=== PATIENT | female | born 1965 | race African-American/Black ===

== ENCOUNTER 2018-08-11 11:38 | Inpatient (IN) ==
[2018-08-11] MEDS ORDERED: DUONEB (A & A) INH ONE (11:51)
[2018-08-11] MEDS ORDERED: NS 1,000 ML IV ONE (11:51)
[2018-08-11] MEDS ORDERED: TYLENOL PO ONE (11:51)
--- NOTE | 2018-08-11 12:37 | Diag Imaging Result Doc PS360 ---
EXAM: CHEST-PORTABLE 08/11/2018 HISTORY: cough TECHNIQUE: Erect AP portable at 1224 COMMENT: Compared to the previous study of 09/09/2016 there has been no significant change in the appearance of the chest. IMPRESSION: Stable chest. Electronically signed by Elias Petersen 08/11/2018 12:35 PM
[2018-08-11 12:45] LABS: INFLUENZA A NEGATIVE (NEGATIVE); INFLUENZA B NEGATIVE (NEGATIVE)
[2018-08-11 13:11] LABS: BILIRUBIN URINE NEGATIVE (NEGATIVE); BLOOD URINE TRACE (NEGATIVE); CLARITY CLEAR (CLEAR); COLOR YELLOW; GLUCOSE URINE NEGATIVE (NEGATIVE); KETONE URINE 1+(Small) mg/dL (NEGATIVE); LEUKOCYTES URINE 2+ (NEGATIVE); NITRITE URINE NEGATIVE (NEGATIVE); PH URINE 6.5; PROTEIN URINE TRACE mg/dL (NEGATIVE); SP GRAVITY URINE 1.015; UROBILINOGEN URINE NORMAL
[2018-08-11 13:12] LABS: URINE EPITHELIAL CELLS >10 /HPF (<10); URINE RBC <10 /HPF (<10); URINE SOURCE CLEAN CATCH
[2018-08-11] MEDS ORDERED: ROCEPHIN 1 GM in NS 50 ML IV ONE (13:28)
[2018-08-11 13:36] LABS: BASO# 0.03 X1000 (0.0-0.2); BASO% 0.2 % (0.0-0.8); HEMATOCRIT 39.4 % (37.0-47.0); IMM GRAN# 0.13 X1000 (0.0-0.04); IMM GRAN% 0.9 % (0.0-0.5); LYMPH# 0.77 X1000 (1.2-3.4); LYMPH% 5.1 % (20.5-51.1); MCH 27.8 PG (27-31); MCV 84.4 FL (81-99); MONO# 0.44 X1000 (0.11-0.59); MONO% 2.9 % (1.7-9.3); MPV 10.9 FL (7.4-10.4); NEUT# 13.86 X1000 (1.4-6.5); NEUT% 90.9 % (42.2-75.2); PLT 232 X1000 (130-400); RBC 4.67 XMIL (4.2-5.4); RDW 15.3 % (11.5-14.5); WBC 15.23 X1000 (4.8-10.8)
[2018-08-11 13:37] LABS: AGAP 13; ALKALINE PHOSPHATASE 52 U/L (32-104); BUN 13 mg/dL (8-22); CALCIUM 9.7 mg/dL (8.8-10.2); CHLORIDE 103 mmol/L (98-107); COSMO 283; CREATININE 0.6 mg/dL (0.5-0.9); ESTIMATED GFR > 60; GLUCOSE 131 mg/dL (70-104); GOT 16 U/L (10-30); GPT 10 U/L (10-36); POTASSIUM 3.3 mmol/L (3.5-5.1); SODIUM 141 mmol/L (136-145); TCO2 25 mmol/L (25-35); TOTAL PROTEIN 7.7 g/dL (6.3-8.3)
--- NOTE | 2018-08-11 15:10 | Diag Imaging Result Doc PS360 ---
EXAM: CT ANGIOGRM PULMONARY ARTERIES HISTORY: SOB TECHNIQUE: Routine with IV contrast. 3-D postprocessing COMPARISON: None. FINDINGS: There is appropriate arterial opacification. No filling defects to suggest acute pulmonary embolism. There is cardiomegaly. No aortic aneurysm or dissection. Prominent main pulmonary artery is suggestive of pulmonary arterial hypertension. Within the upper lobes right greater than left posteriorly there are prominent reticular markings and trace dependent atelectasis. 7 mm groundglass nodule image 30 sequence five is incidentally noted. There are calcified hilar lymph nodes. There is hepatic steatosis. IMPRESSION: 1.No evidence for acute pulmonary embolism. 2.Cardiomegaly. 3.Mild dependent fibrosis/atelectasis. 4.Possible pulmonary arterial hypertension. 5.Incidental groundglass 7 mm nodule right upper lobe. As per Fleischner Society guidelines, recommend follow-up CT in 6-12 months then every two years for five years if persistent. This exam was performed using automated exposure control, adjustment of mA or kV according to patient size, and/or use of iterative reconstruction technique. Electronically signed by Araceli Whitney 08/11/2018 3:07 PM
--- NOTE | 2018-08-11 15:38 | PROVIDER DOCUMENTATION ---
This chart was entered by Jacqueline Chavez Scribe, acting as scribe for Sudhir Multani MD. HPI-General Adult - General Chief Complaint: Cold Symptoms Stated Complaint: NAUSEA & VOMITING Time Seen by Provider: 08/11/18 11:55 Source: patient Allergies/Adverse Reactions: Patient Allergies Allergy/AdvReac Type Severity Reaction Status Date / Time No Known Allergies Allergy Verified 01/05/18 22:45 Home Medications: Home Medication List Medication Instructions Recorded Confirmed Last Taken Type Metformin [Glucophage] 1,000 mg PO BID 05/22/15 07/14/18 01/05/18 17:00 History Simvastatin 40 mg PO QHS 11/27/15 07/14/18 01/04/18 History Clonazepam 1 mg PO QHS 01/05/18 07/14/18 01/04/18 History Ergocalciferol (Vitamin D2) 50,000 unit PO DIRECTED 01/05/18 07/14/18 History [Vitamin D2] Gabapentin [Neurontin] 800 mg PO BID 01/05/18 07/14/18 01/05/18 17:00 History Hydrocodone/Acetaminophen 1 each PO 4XDAY 01/05/18 07/14/18 01/05/18 17:00 History [Hydrocodon-Acetaminophn 10-325] Meloxicam 7.5 mg PO QHS 01/05/18 07/14/18 01/04/18 History Metoprolol Succinate E.r. [Toprol 25 mg PO BID 01/05/18 07/14/18 01/05/18 History Xl] Omeprazole 40 mg PO DAILY 01/05/18 07/14/18 01/05/18 History Sitagliptin [Januvia] 50 mg PO DAILY 01/05/18 07/14/18 01/05/18 History Tizanidine HCl 4 mg PO TID 01/05/18 07/14/18 01/05/18 History Sulfamethoxazole/Trimethoprim 1 ea PO BID #14 tab 01/06/18 07/14/18 Unknown Rx [Bactrim Ds Tablet] Albuterol Sulfate [Proventil Hfa] 2 puff IH Q4HR PRN #1 hfa.aer.ad 05/17/18 Unknown Rx Promethazine/Dextromethorphan 5 ml PO BID PRN #90 ml 05/17/18 07/14/18 Unknown Rx [Promethazine-Dm Syrup] Naproxen [EC-Naprosyn] 500 mg PO BID PRN #30 tablet. 07/14/18 Unknown Rx - History of Present Illness -Gen Adult Nature of Presenting Problems: Patient is a 53 year old female who presents to the ED with multiple complaints. Patient states symptoms of weakness, cough, nasal congestion and fever. Patient denies nausea and vomiting. Location of Pain/Injury: reports: none Pain Radiation: reports: no radiation Quality of Pain: reports: none Severity: reports: mild Onset/Duration: reports: unsure Timing: reports: still present Context/Activities at Onset: reports: light activity Modifying Factors: improves with: nothing Associated Symptoms: reports: cough, fever/chills (fever), sinus congestion/ drainage (congestion), weakness Similar Symptoms Previously?: Yes Recently seen or treated by another doctor?: No Review of Systems - Adult - REVIEW OF SYSTEMS - ADULT Constitutional: reports: fever. denies: chills, fatique Eyes: reports: no symptoms reported Ears, Nose, Mouth & Throat: reports: sinus problem (congestion). denies: ear pain, nose pain, throat pain Cardiovascular: reports: no symptoms reported Respiratory: reports: cough. denies: shortness of breath, wheezing Gastrointestinal: reports: no symptoms reported Genitourinary: reports: no symptoms reported Musculoskeletal: reports: muscle weakness. denies: back pain, neck pain Integumentary: reports: no symptoms reported Neurological: reports: no symptoms reported Psychiatric: reports: no symptoms reported Endocrine: reports: no symptoms reported Hematologic/Lymphatic: reports: no symptoms reported Allergic/Immunologic: reports: no symptoms reported All Other Systems: Reviewed and Negative Past History - Adult - PAST MEDICAL HISTORY-ADULT Review of Records: reports: Nursing Assessment Review, Medications Reviewed, Social history reviewed & non-contributory. Major Childhood Illnesses: reports: denies history Cardiovascular: reports: blood clots, HTN, hyperlipidemia. denies: ME, pacemaker Respiratory: reports: asthma, bronchitis, other (bacterial meningitis) Gastrointestinal: reports: GERD. denies: cholelithiasis, colitis, diverticulosis, GI bleed, ulcer Obstetrical/Gynecological: reports: denies history Genitourinary: reports: polycystic kidney disease. denies: incontinence, kidney disease, kidney stones Musculoskeletal: reports: denies history Neurological: reports: headaches/migraines (tension and sinus) Endocrine/Immune: reports: Diabetes Other Conditions: reports: other (shingles) - PRIOR SURGERIES/PROCEDURES Surgical/Procedure History: reports: , orthopedic (extremity) (right hand, left arm, right ankle, left shoulder), other (bilateral tubal ) - IMMUNIZATION STATUS Childhood Immunizations: UTD, See Nurse Assessment Flu Vaccine: See Nurse Assessment - FAMILY HISTORY Family History: reviewed, not pertinent - SOCIAL HISTORY Smoking: cigarettes (former) Substance Use: denies Physical Exam-General - PHYSICAL EXAM-ADULT Initial Vital Signs Reviewed: Yes - CONSTITUTIONAL General Appearance: alert, no apparent distress - HEAD, EARS, NOSE, MOUTH & THROAT HENMT: normal ENT inspection - NECK Neck: normal inspection - RESPIRATORY Respiratory: chest non-tender, lungs clear, normal breath sounds - CARDIOVASCULAR Cardiovascular: normal peripheral pulses, tachycardia - GASTROINTESTINAL (ABDOMEN) Abdominal Exam: normal bowel sounds, non tender, soft - MUSCULOSKELETAL Extremity: non-tender, normal inspection - SKIN Integumentary: normal color, normal turgor, warm/dry - NEUROLOGIC Neurologic: grossly normal, no motor/sensory deficits - PSYCHIATRIC Psych/Mental Status: normal mood/affect, oriented x 3 Progress - PLAN OF CARE/RESULTS Progress/Plan/Lab Results: Vital Signs - 8 hr 08/11/18 11:45 Temperature 100.0 F H Pulse Rate 136 H Respiratory Rate 18 Blood Pressure 109/071 O2 Sat by Pulse Oximetry 95 Orders Category Date Time Status Saline Loc NOW Care 08/11/18 11:51 Active CHEST-PORTABLE [RAD] Stat Exams 08/11/18 11:51 Ordered BLOOD CULTURE [BLDCUL] Stat Lab 08/11/18 11:51 Ordered CBC WITH DIFF [HEME] Stat Lab 08/11/18 11:51 Ordered COMPREHENSIVE METABOLIC PANEL [CHEM] Stat Lab 08/11/18 11:51 Ordered D-DIMER [COAG] Stat Lab 08/11/18 11:52 Ordered Flu Swab [INFLUENZA SCREEN A/B] Stat Lab 08/11/18 11:50 Uncollected LACTATE, PLASMA [CHEM] Stat Lab 08/11/18 11:51 Uncollected PRO B-NATRIURETIC PEPTIDE Stat Lab 08/11/18 11:51 Ordered TROPONIN T Stat Lab 08/11/18 11:52 Ordered 0.9% Sodium Chloride Inj [Ns] 1,000 ml Med 08/11/18 11:51 Active IV 999 mls/hr Acetaminophen [Tylenol] Med 08/11/18 11:51 Discontinued 1,000 mg PO NOW ONE Albuterol 2.5MG/Ipratrop 0.5MG [Duoneb (A & A)] Med 08/11/18 11:51 Discontinued 3 ml INH NOW ONE Aerosol Treatments Routine Oth 08/11/18 11:52 Active Aerosol Treatments Stat Oth 08/11/18 11:52 Active Result Diagrams: 08/11/18 12:20 08/11/18 13:00 - EKG 1 Time of EKG reading by physician:: 13:07 EKG Read and Signed by:: Sudhir Multani EKG Interpretation (*Must complete 3 of following elements*): Abnormal Rate: 117 Rhythm: sinus tachycardia Comments: otherwise normal ECG - XRAY 1 XRAY Study: Chest Impression: See EMR Report ( EXAM: CHEST-PORTABLE 08/11/2018 HISTORY: cough TECHNIQUE: Erect AP portable at 1224 COMMENT: Compared to the previous study of 09/09/2016 there has been no significant change in the appearance of the chest. IMPRESSION: Stable chest. Electronically signed by Elias Petersen 12:35 PM 08/11/18 1235 Interpreting Physician: Elias Petersen MD Dictated Date/Time: 08/11/18 1234 cc: Sudhir Multani MD;) - CT/MRI 1 CT Study: Angiogram Impression: See EMR Report (EXAM: CT ANGIOGRM PULMONARY ARTERIES HISTORY: SOB TECHNIQUE: Routine with IV contrast. 3-D postprocessing COMPARISON: None. FINDINGS: There is appropriate arterial opacification. No filling defects to suggest acute pulmonary embolism. There is cardiomegaly. No aortic aneurysm or dissection. Prominent main pulmonary artery is suggestive of pulmonary arterial hypertension. Within the upper lobes right greater than left posteriorly there are prominent reticular markings and trace dependent atelectasis. 7 mm groundglass nodule image 30 sequence five is incidentally noted. There are calcified hilar lymph nodes. There is hepatic steatosis. IMPRESSION: 1.No evidence for acute pulmonary embolism. 2.Cardiomegaly. 3.Mild dependent fibrosis /atelectasis. 4.Possible pulmonary arterial hypertension. 5.Incidental groundglass 7 mm nodule right upper lobe. As per Fleischner Society guidelines, recommend follow-up CT in 6-12 months then every two years for five years if persistent. This exam was performed using automated exposure control, adjustment of mA or kV according to patient size, and/or use of iterative reconstruction technique. Electronically signed by Araceli Whitney 08/11/2018 3: 07 PM 08/11/18 9505 Interpreting Physician: Araceli Whitney MD Dictated Date/Time: 08/11/18 6275 cc: Sudhir Multani MD; None,PCP) - CONSULTS/PCP/HOSPITALIST Notification #1 *Consult/PCP/Hospitalist*: Dr. Reaves Time Discussed: 15:23 Reason/Comments: Dr. Multani consulted with Dr. Reaves about patient Consult Disposition: Admit Departure - Departure Date of Disposition Decision: 08/11/18 Time of Disposition Decision: 15:23 DIAGNOSIS: UTI (urinary tract infection), Leukocytosis Disposition: ADMITTED INPATIENT 09 Certified Medical Emergency: Emergent Condition: Stable Referrals and Follow-Ups: None,PCP [Primary Care Provider] - - Critical Care Note This patient required my direct & personal management of CC.: No Attestation - Physician/ LIZA Attestation Patient care was provided by Advanced Practice Provider:: No The physician spent face to face time with patient:: Yes Advanced Practice Provider documentation review:: Supervising physician onsite and consulted in the evaluation and care of this patient. The physician did have a face to face encounter with the patient. This chart was documented by the indicated scribe, (Jacqueline Chavez Scribe) and accurately reflects the services I performed and decisions made by , Sudhir Multani MD, as attested by the provider's signature.
[2018-08-11] MEDS ORDERED: FLU VACCINE IM ONE (17:38)
[2018-08-11] MEDS: NS 1,000 ML IV SCH (18:25)
[2018-08-11] MEDS: SODIUM CHLORIDE 0.9% INJ SCH (18:25)
[2018-08-11] MEDS: PROTONIX IV SCH (18:25)
[2018-08-11] MEDS ORDERED: LOVENOX SUBQ ONE (18:30)
--- NOTE | 2018-08-11 19:52 | EKG Report ---
Test Performed on : 08/11/2018 7:50:45 PM Test Reason : Tachycardia on tele Blood Pressure : / mmHG Vent. Rate : 128 BPM Atrial Rate : 128 BPM P-R Int : 146 ms QRS Dur : 068 ms QT Int : 304 ms P-R-T Axes : 057 018 041 degrees QTc Int : 443 ms Sinus tachycardia. with premature atrial complexes. Nonspecific ST abnormality Abnormal ECG When compared with ECG of 11-AUG-2018 13:07, (Unconfirmed) premature atrial complexes. are now present Confirmed by Daimen Bowens MD ([id number]) on 08/21/2018 9:52:55 AM
[2018-08-11] MEDS: TYLENOL PO PRN (20:23)
[2018-08-11] MEDS: NORCO-10 PO SCH (20:30)
[2018-08-11] MEDS: TOPROL XL PO SCH (20:30)
[2018-08-11] MEDS: HUMALOG DOSE (PARKWAY) SUBQ SCH (20:37)
--- NOTE | 2018-08-11 23:59 | HISTORY AND PHYSICAL ---
CHIEF COMPLAINT: Weakness, nausea, vomiting. HISTORY OF PRESENT ILLNESS: This is a 53-year-old female with a history of diabetes mellitus, hyperlipidemia and hypertension. She presents to the emergency room complaining of fever, cough and congestion that have progressed over the past 3 days and she states today " it hit me all at once." Therefore, she came in for evaluation. She was tachycardic on arrival for which she was given IV hydration. She denied any syncope or dizziness, any chest pain, palpitations. She does report sinus congestion and drainage that have been present for quite some time. PAST MEDICAL HISTORY: Hypertension, hyperlipidemia, prior blood clots, polycystic kidney disease, diabetes mellitus. PAST SURGICAL HISTORY: Right knee replacement. SOCIAL HISTORY: She denies alcohol, tobacco, or illicit drug use. ALLERGIES: No known drug allergies. HOME MEDICATIONS: A list will be obtained by the nursing staff and reviewed and restarted as is appropriate. PHYSICAL EXAMINATION: GENERAL: This is a 53-year-old female who is lying in the bed in no distress. VITAL SIGNS: Blood pressure is 117/92 with a heart rate of 100, respirations 18 , temperature "90" degrees with room air saturations 96-98%. EYES: Pupils are equal, round, react to light. EOMs are intact. Sclerae are anicteric. HENT: Head is normocephalic, atraumatic. Mucous membranes are moist. NECK: Supple with trachea midline. CARDIOVASCULAR: Regular rate and rhythm. She is tachycardic. S1 and S2 appreciated. She has peripheral pulses palpable x4 extremities. PULMONARY: Breath sounds are clear with no increased work of breathing noted. Chest rises and falls symmetric with respiration. Chest wall is nontender to palpation. GASTROINTESTINAL: Abdomen is soft, nontender, nondistended with bowel sounds in all 4 quadrants. GENITOURINARY: She denies any suprapubic or CVAT. NEUROLOGIC: She is alert and oriented x3. LABS: WBC is 15.2 with hemoglobin 13, hematocrit 39.4 and platelets of 232, 000. D-dimer is 2.16. Sodium 141, potassium 3.3, BUN 13, creatinine 0.6, glucose of 131. Urinalysis reveals 10-20 microscopic white blood cells with greater than 10 epithelial cells, 1+ ketones. Blood culture is pending. ASSESSMENT AND PLAN: 1. Leukocytosis. 2. Urinary tract infection. 3. Elevated D-dimer with a CTA pulmonary negative for pulmonary embolism. obtain a lower extremity Doppler. As she does have a history of a DVT in the past, we will give 1 dose of Lovenox a milligram per kilogram and then we will reevaluate in the morning. l continue Rocephin and any further antibiotics will be culture driven. pattern blood glucose with sliding scale insulin. Further treatments pending hospital course. Dictated by SAVITA Crowe for Braulio Carias MD This chart was documented by, SAVITA Crowe and accurately reflects the services performed, treatment plan and medical decisions as attested by the providers signature Braulio Carias MD. cc: SAVITA Crowe MD [facility]
[2018-08-12] MEDS: TYLENOL PO PRN ×4 (00:51→20:47)
[2018-08-12] MEDS: NORCO-10 PO SCH ×4 (02:09→20:47)
[2018-08-12] MEDS ORDERED: VANCOMYCIN IV PER PHARMACY MISC SCH (02:45)
[2018-08-12] MEDS ORDERED: VANCOMYCIN 1 GM/NS 1 GM/250 ML IVPB IV ONE ×2 (04:00→06:00)
[2018-08-12] MEDS: HUMALOG DOSE (PARKWAY) SUBQ SCH ×4 (06:03→20:47)
[2018-08-12] MEDS: TOPROL XL PO SCH ×2 (08:29→20:47)
--- NOTE | 2018-08-12 11:08 | EKG Report ---
Test Performed on : 08/11/2018 1:07:34 PM Test Reason : ER Blood Pressure : / mmHG Vent. Rate : 117 BPM Atrial Rate : 117 BPM P-R Int : 160 ms QRS Dur : 072 ms QT Int : 320 ms P-R-T Axes : 053 017 029 degrees QTc Int : 446 ms Sinus tachycardia. Otherwise normal ECG When compared with ECG of 03-AUG-2016 13:47, Nonspecific T wave abnormality no longer evident in Anterior leads T wave amplitude has decreased in Lateral leads Unconfirmed Result
[2018-08-12] MEDS: NS 1,000 ML IV SCH (12:10)
--- NOTE | 2018-08-12 13:45 | PROGRESS NOTE ---
DATE: 08/12/2018 SUBJECTIVE: Patient continues to have fever and complains of having body aches. OBJECTIVE: Vital Signs: Temperature 101.7 degrees Fahrenheit, pulse 103 per minute, respiratory rate 20 per minute, blood pressure 121/82, pulse oximetry 93% on room air. General: Patient is alert and oriented x3. She does not appear to be in any acute distress but does appear to be somewhat sick. Cardiovascular: First and second heart sounds are audible without any murmurs or gallops. Respiratory: No respiratory distress noted. Bilateral lung air entry is good without any rales or rhonchi. Gastrointestinal: Abdomen is soft and nondistended. Normal bowel sounds are present. DIAGNOSTIC DATA: CBC shows WBC count of 15.23. There are 90.9% neutrophils. Chemistry showed potassium levels of 3.3. Glucose levels were found to be 131. Rest of the chemistry is nondiagnostic. Cardiac enzymes are found to be negative and D-dimer was elevated at 2.16. Urinalysis showed 10 to 20 white blood cells per high-power field. One set of blood culture grew gram-positive cocci. Pulmonary angiogram did not show any evidence of acute pulmonary embolism. Incidental ground-glass 7 mm nodule in the right upper lobe was noted. IMPRESSION: 1. Fever with leukocytosis secondary to urinary tract infection with gram-positive bacteremia. 2. Hypokalemia. 3. Incidental pulmonary nodule. PLAN: The patient will continue to receive IV ceftriaxone along with vancomycin. We will continue with lispro insulin as per sliding scale for her diabetes and keep her on IV fluids. I am going to have repeat labs including CBC and CMP in the morning tomorrow. Further recommendations will be given as per hospital course. cc: Jacqui Mccarty MD
[2018-08-12] MEDS: ROCEPHIN 1 GM in NS 50 ML IV SCH (14:39)
[2018-08-12] MEDS: VANCOMYCIN 1,750 MG in NS 250 ML IV SCH (16:27)
[2018-08-12] MEDS: PROTONIX IV SCH (18:27)
[2018-08-13] MEDS: NORCO-10 PO SCH ×4 (02:03→21:59)
[2018-08-13] MEDS: VANCOMYCIN 1,750 MG in NS 250 ML IV SCH ×2 (03:07→17:17)
[2018-08-13 06:06] LABS: BASO# 0.03 X1000 (0.0-0.2); BASO% 0.3 % (0.0-0.8); EOS# 0.01 X1000 (0.0-0.7); EOS% 0.1 % (0.0-10.0); HEMATOCRIT 36.2 % (37.0-47.0); HEMOGLOBIN 11.5 g/dL (12.0-16.0); IMM GRAN# 0.02 X1000 (0.0-0.04); IMM GRAN% 0.2 % (0.0-0.5); LYMPH# 3.25 X1000 (1.2-3.4); LYMPH% 28.1 % (20.5-51.1); MCHC 31.8 g/dL (33-37); MONO% 6.9 % (1.7-9.3); MPV 10.6 FL (7.4-10.4); NEUT# 7.44 X1000 (1.4-6.5); NEUT% 64.4 % (42.2-75.2); PLT 176 X1000 (130-400); RBC 4.26 XMIL (4.2-5.4); RDW 15.7 % (11.5-14.5); WBC 11.55 X1000 (4.8-10.8)
[2018-08-13] MEDS: HUMALOG DOSE (PARKWAY) SUBQ SCH ×4 (06:26→21:54)
[2018-08-13 06:33] LABS: AGAP 12; ALBUMIN 3.3 g/dL (3.5-5.0); ALKALINE PHOSPHATASE 47 U/L (32-104); BUN 8 mg/dL (8-22); CHLORIDE 103 mmol/L (98-107); COSMO 275; CREATININE 0.6 mg/dL (0.5-0.9); ESTIMATED GFR > 60; GLUCOSE 117 mg/dL (70-104); GOT 17 U/L (10-30); GPT 9 U/L (10-36); MAGNESIUM 1.5 mg/dL (1.5-2.7); POTASSIUM 3.3 mmol/L (3.5-5.1); SODIUM 138 mmol/L (136-145); TCO2 23 mmol/L (25-35)
[2018-08-13] MEDS: TOPROL XL PO SCH ×2 (08:48→22:00)
[2018-08-13] MEDS ORDERED: KLOR-CON PO ONE (12:02)
[2018-08-13] MEDS ORDERED: MORPHINE IV ONE (12:28)
[2018-08-13] MEDS ORDERED: BENADRYL IV ONE (12:28)
--- NOTE | 2018-08-13 12:49 | PROGRESS NOTE ---
DATE: 08/13/2018 SUBJECTIVE: The patient feels much better today as compared to yesterday. She continues to have pain and swelling in her right knee, however. OBJECTIVE: Vital Signs: Temperature 98.9 degrees, with a maximum temperature of 102 degrees Fahrenheit last night at 8 p.m. Pulse rate is 97 per minute. Respiratory rate 18 per minute. Blood pressure 111/73. Pulse oximetry 98% on room air. General: The patient is alert and oriented x3. She does not appear to be in any acute distress. Cardiovascular System: First and second heart sounds are audible without any murmurs or gallops. Respiratory System: No respiratory distress noted. Bilateral lung air entry is good without any rales or rhonchi. Gastrointestinal: Abdomen is soft and nondistended. It is nontender on palpation. Normal bowel sounds are present. Musculoskeletal: Right knee is edematous and tender, with decreased range of motion secondary to pain and stiffness. It is warm to touch. IMPRESSION: 1. Urinary tract infection, with bacteremia secondary to Streptococcus pneumonia. 2. Septic arthritis, right knee, status post total knee arthroplasty approximately 7 months ago in December 2017. 3. Hypokalemia. Potassium level of 3.3. 4. Type 2 diabetes mellitus. 5. Incidental pulmonary nodule. PLAN: The patient will be kept on ceftriaxone and vancomycin intravenously, and we are going to give her potassium supplementation. Orthopedic consultation has been requested to evaluate her right knee swelling and pain with possible septic arthritis. The patient has a history of diabetes and therefore, we are going to continue with lispro insulin as per sliding scale to control her glucose levels. She will be kept on IV fluid normal saline 75 mL an hour. As far as her pulmonary nodule is concerned, this is an incidental finding and this was discussed with the patient in detail. She understands that this has to be followed up as outpatient once she is discharged. Further recommendations will be given as per hospital course. cc: Jacqui Mccarty MD
--- NOTE | 2018-08-13 14:19 | Diag Imaging Result Doc PS360 ---
EXAM: KNEE 1-2 VIEWS-RIGHT HISTORY: possible sesis TECHNIQUE: Right knee two views COMPARISON: None. FINDINGS: There is soft tissue swelling about the knee. There has been prior orthopedic replacement of the knee. Good alignment to the femoral and tibial components. No evidence of loosening. No fracture. No dislocation. IMPRESSION: Soft tissue swelling, but otherwise negative exam. Electronically signed by Micky Ordonez 08/13/2018 2:17 PM
[2018-08-13] MEDS: ZYRTEC PO SCH (14:43)
[2018-08-13] MEDS: ZANTAC PO SCH ×2 (14:43→22:00)
[2018-08-13] MEDS: ROCEPHIN 1 GM in NS 50 ML IV SCH (16:11)
[2018-08-13] MEDS: PROTONIX IV SCH (17:17)
[2018-08-13] MEDS: SODIUM CHLORIDE 0.9% INJ SCH (17:17)
[2018-08-14] MEDS: NORCO-10 PO SCH ×4 (02:05→21:12)
[2018-08-14 05:32] LABS: BASO# 0.02 X1000 (0.0-0.2); BASO% 0.2 % (0.0-0.8); EOS# 0.04 X1000 (0.0-0.7); EOS% 0.4 % (0.0-10.0); HEMATOCRIT 33.9 % (37.0-47.0); HEMOGLOBIN 10.7 g/dL (12.0-16.0); IMM GRAN# 0.02 X1000 (0.0-0.04); IMM GRAN% 0.2 % (0.0-0.5); LYMPH# 3.04 X1000 (1.2-3.4); LYMPH% 27.9 % (20.5-51.1); MCH 26.8 PG (27-31); MCHC 31.6 g/dL (33-37); MCV 84.8 FL (81-99); MONO# 1.03 X1000 (0.11-0.59); MONO% 9.4 % (1.7-9.3); MPV 10.4 FL (7.4-10.4); NEUT# 6.75 X1000 (1.4-6.5); NEUT% 61.9 % (42.2-75.2); PLT 177 X1000 (130-400); RDW 15.7 % (11.5-14.5)
[2018-08-14] MEDS: VANCOMYCIN 1,750 MG in NS 250 ML IV SCH ×2 (06:30→17:22)
[2018-08-14 06:31] LABS: AGAP 13; CHLORIDE 105 mmol/L (98-107); COSMO 278; GLUCOSE 141 mg/dL (70-104); POTASSIUM 3.8 mmol/L (3.5-5.1); SODIUM 139 mmol/L (136-145); TCO2 20 mmol/L (25-35)
[2018-08-14] MEDS: HUMALOG DOSE (PARKWAY) SUBQ SCH ×4 (06:31→21:09)
[2018-08-14 06:37] LABS: BUN 9 mg/dL (8-22); CREATININE 0.7 mg/dL (0.5-0.9); ESTIMATED GFR > 60
[2018-08-14] MEDS: ZANTAC PO SCH ×2 (09:33→21:13)
[2018-08-14] MEDS: ZYRTEC PO SCH (09:34)
[2018-08-14] MEDS: TOPROL XL PO SCH (09:34)
--- NOTE | 2018-08-14 11:54 | PROGRESS NOTE ---
DATE: 08/14/2018 SUBJECTIVE: Nayana Barksdale has cellulitis of her right leg with possible septic total knee. Her aspiration from yesterday came back with a cell count that is not consistent with infection. Her fluid did not appear to be infected either. We are still awaiting cultures, but likely needs no further orthopedic treatment at this time. She can follow up with her orthopedic surgeon or who is following her for her total knee as an outpatient. She should continue on the antibiotics for her cellulitis. I will monitor her cultures and, if it does grow out a bacteria in her knee, then we will consider irrigation and debridement of her knee. cc: Sai Vogt MD
[2018-08-14 12:19] LABS: BODY FLUID SOURCE SYNOVIAL FLUID
--- NOTE | 2018-08-14 12:20 | CONSULTATION ---
DATE OF CONSULTATION: 08/13/2018 CHIEF COMPLAINT: Right knee pain and swelling. HISTORY OF PRESENT ILLNESS: This is a 53-year-old female who was admitted for a urinary tract infection and possible pneumonia. She has streptococcus pneumoniae in her blood cultures. She continued to have redness of her leg with effusion in her right knee. She had a total knee arthroplasty by Dr. Guanako Hogan back in the summer and then had it scoped for scar tissue back in approximately February or March, she thinks. She now states when she came into the hospital , her knee was not bothering her but now it is swollen and painful. PAST MEDICAL HISTORY: See admission history and physical PAST SURGICAL HISTORY: See admission history and physical SOCIAL HISTORY: See admission history and physical MEDICINES: See admission history and physical ALLERGIES: See admission history and physical REVIEW OF SYSTEMS: Positive for right knee pain. All other systems were negative. PHYSICAL EXAMINATION: General: Reveals a well-developed, well-nourished female. She is alert and cooperative with the exam. Extremities: Her knee does reveal some erythema of her leg up to her knee. She does have an effusion in her knee as well and pain with range of motion of her knee. DIAGNOSTIC DATA: X-rays of her knee show the prosthesis appears to be in good position. There is no sign of any loosening or wear. I am uncertain what type of knee this is but it looks like it is probably a Biomet knee or possibly a Yvonne, neither of which I typically treat. ASSESSMENT AND PLAN: I have aspirated her knee, returned about 60 mL of fluid. It appeared fairly normal-appearing joint fluid. I did not inject her knee since she has a total knee in place. We will consider further treatment options depending upon the results of her culture, Gram stain, and cell count. cc: Sai Vogt MD [facility]
[2018-08-14 12:21] LABS: MONOS 24 %; POLYS 76 %; WBC BF 2805 /cumm
[2018-08-14] MEDS: ROCEPHIN 1 GM in NS 50 ML IV SCH (15:59)
[2018-08-14] MEDS: NS 1,000 ML IV SCH (16:07)
[2018-08-14 16:32] LABS: URINE SOURCE CLEAN CATCH
[2018-08-14 16:36] LABS: BILIRUBIN URINE NEGATIVE (NEGATIVE); BLOOD URINE 1+ (NEGATIVE); CLARITY CLEAR (CLEAR); COLOR YELLOW; GLUCOSE URINE NEGATIVE (NEGATIVE); KETONE URINE NEGATIVE (NEGATIVE); LEUKOCYTES URINE TRACE (NEGATIVE); NITRITE URINE NEGATIVE (NEGATIVE); PROTEIN URINE TRACE mg/dL (NEGATIVE); SP GRAVITY URINE 1.005; UROBILINOGEN URINE NORMAL
[2018-08-14 16:37] LABS: URINE EPITHELIAL CELLS <10 /HPF (<10); URINE RBC <10 /HPF (<10); URINE WBC <10 /HPF (<10)
[2018-08-14 16:38] LABS: URINE BACTERIA 1+ /HFP; URINE CAST NONE SEEN /LPF; URINE CRYSTAL NONE SEEN /HPF; URINE YEAST NONE SEEN /HPF
--- NOTE | 2018-08-14 17:33 | PROGRESS NOTE ---
DATE: 08/14/2018 SUBJECTIVE: Patient denies any complaints today except for right knee pain and swelling. OBJECTIVE: Vital Signs: Temperature 98.7 degrees, pulse rate 89 beats per minute, respiratory rate 20 per minute and blood blood pressure 99/64 mmHg. Pulse oximetry 97% on room air. General: Patient is alert and oriented x 3. She does not appear to be in acute distress. Cardiovascular: S1, S2 are present without any murmurs. Respiratory System: Bilateral lung air entry good without any rales of rhonchi present on auscultation. Gastrointestinal System: Abdomen is soft and nondistended. It is nontender and normal bowel sounds are present. Musculoskeletal: Right knee edematous and tender along with increased warmth. DIAGNOSTIC DATA: CBC done today shows WBC of 10.90, hemoglobin 10.7, hematocrit 33.9 and platelets 177. BMP done today is nondiagnostic. IMPRESSION: 1. Urinary tract infection with bacteremia secondary to streptococcus pneumoniae. 2. Septic arthritis right knee that is status post total knee arthroplasty approximately 7 months ago in December 2017. 3. Type 2 diabetes mellitus. 4. Incidental pulmonary nodule. PLAN: Patient will continue to receive IV ceftriaxone for her current conditions and urinary tract infection, bacteremia and septic arthritis. Orthopedic consultation with Dr. Vogt was obtained and he did aspirate right knee. Fluid did not have elevated white cells and did not appear to be septic. Culture was sent and Dr. Vogt did not think that any arthritic intervention is recommended at this time. He has recommended patient to follow up with her original orthopedic surgeon who did surgery. The patient will be continued her other routine medications including lispro insulin as per sliding scale for to control her glucose levels. She understands that she needs to follow up with inbound call center representative to address her pulmonary nodule once she is discharged from the hospital. Further recommendations will be as per hospital course. cc: MD HORACE Olson
[2018-08-14] MEDS: PROTONIX IV SCH (17:40)
[2018-08-14] MEDS: BENADRYL IV PRN (18:25)
[2018-08-15] MEDS: NORCO-10 PO SCH ×4 (02:09→20:32)
[2018-08-15] MEDS: BENADRYL IV PRN (04:01)
[2018-08-15] MEDS: VANCOMYCIN 1,750 MG in NS 250 ML IV SCH (05:15)
[2018-08-15] MEDS: HUMALOG DOSE (PARKWAY) SUBQ SCH ×4 (06:27→21:30)
[2018-08-15 06:53] LABS: BASO# 0.05 X1000 (0.0-0.2); BASO% 0.6 % (0.0-0.8); EOS# 0.12 X1000 (0.0-0.7); EOS% 1.3 % (0.0-10.0); HEMATOCRIT 33.8 % (37.0-47.0); HEMOGLOBIN 10.7 g/dL (12.0-16.0); IMM GRAN# 0.03 X1000 (0.0-0.04); IMM GRAN% 0.3 % (0.0-0.5); LYMPH# 3.18 X1000 (1.2-3.4); LYMPH% 35.1 % (20.5-51.1); MCH 26.8 PG (27-31); MCHC 31.7 g/dL (33-37); MCV 84.7 FL (81-99); MONO# 1.19 X1000 (0.11-0.59); MONO% 13.1 % (1.7-9.3); MPV 11.1 FL (7.4-10.4); NEUT# 4.48 X1000 (1.4-6.5); NEUT% 49.6 % (42.2-75.2); PLT 219 X1000 (130-400); RBC 3.99 XMIL (4.2-5.4); RDW 15.5 % (11.5-14.5); WBC 9.05 X1000 (4.8-10.8)
[2018-08-15 07:21] LABS: AGAP 12; ALBUMIN 3.3 g/dL (3.5-5.0); ALKALINE PHOSPHATASE 61 U/L (32-104); BUN 6 mg/dL (8-22); CHLORIDE 105 mmol/L (98-107); COSMO 279; CREATININE 0.7 mg/dL (0.5-0.9); ESTIMATED GFR > 60; GLUCOSE 107 mg/dL (70-104); GOT 21 U/L (10-30); GPT 12 U/L (10-36); POTASSIUM 3.5 mmol/L (3.5-5.1); SODIUM 141 mmol/L (136-145); TCO2 24 mmol/L (25-35); TOTAL PROTEIN 7.4 g/dL (6.3-8.3)
[2018-08-15] MEDS: ZANTAC PO SCH ×2 (08:25→20:32)
[2018-08-15] MEDS: ZYRTEC PO SCH (08:26)
[2018-08-15] MEDS: NS 1,000 ML IV SCH (08:28)
[2018-08-15] MEDS ORDERED: ROCEPHIN 1 GM in NS 50 ML IM ONE (15:57)
[2018-08-15] MEDS ORDERED: ROCEPHIN IM ONE (16:15)
[2018-08-15] MEDS ORDERED: XYLOCAINE-MPF 1% INJ ONE (16:15)
--- NOTE | 2018-08-15 19:39 | PROGRESS NOTE ---
DATE: 08/15/2018 SUBJECTIVE: The patient has no major complaints except for right knee is swollen. OBJECTIVE: Blood pressure is 112/62, heart rate of 94, respiratory 17, temperature 97.6 degrees, 96% on room air.Cardiovascular: Regular rate and rhythm. Pulmonary: Bilateral breath sounds, clear to auscultation. GI: Soft, nontender, nondistended. Bowel sounds are positive. LABORATORY DATA: White count is 9, hemoglobin and hematocrit 10 and 33, platelets 219,000. Basic was normal. PROBLEM LIST: 1. Urinary tract infection I guess but the problem is urine when she came in really was not that impressive, urine culture was never done or maybe it was let me see here so it is hard to describe that this is a urinary tract infection. I am more concerned she has pneumonia which she did not clearly have pneumonia on her CT but she does have a strep pneumo bacteremia and she does now have a right knee effusion which I am not sure if that is the initial source, it is strep pneumoniae, would be unusual for that to cause cellulitis. We may need to get an ID opinion I think that is what I am going to do next but she most likely will need her knee washed out but will see how it goes. 2. Strep bacteremia. We will continue Rocephin. We are working on placement of a line but waiting for negative blood cultures. 3. I think the thing is her hardware is now infected if it was not initially. Her primary orthopedist is in [place] so I will discuss with Dr. Vogt but he may want her to go to [place] where her primary orthopedic doctors are although I think her orthopedist is not her primary doctor anymore, any ways will continue to follow closely. cc: Javi Patricia MD
--- NOTE | 2018-08-15 19:53 | Diag Imaging Result Doc PS360 ---
EXAM: CHEST-2 VIEWS 08/15/2018 HISTORY: hypoxia TECHNIQUE: PA and lateral chest COMMENT: The inspiration is slightly better than on 08/11/2018. Otherwise there has been no significant change. Lungs appear to be clear and the heart and primary vascularity are within normal limits. IMPRESSION: No evidence of acute disease. Electronically signed by Elias Petersen 08/15/2018 7:51 PM
[2018-08-15] MEDS: PROTONIX PO SCH (20:32)
[2018-08-16] MEDS: NORCO-10 PO SCH ×4 (03:06→20:30)
[2018-08-16] MEDS ORDERED: ROCEPHIN 1 GM in NS 50 ML IV SCH (06:00)
[2018-08-16 06:36] LABS: BASO# 0.03 X1000 (0.0-0.2); BASO% 0.4 % (0.0-0.8); EOS# 0.19 X1000 (0.0-0.7); EOS% 2.3 % (0.0-10.0); HEMATOCRIT 29.7 % (37.0-47.0); HEMOGLOBIN 9.5 g/dL (12.0-16.0); IMM GRAN# 0.04 X1000 (0.0-0.04); IMM GRAN% 0.5 % (0.0-0.5); LYMPH# 2.67 X1000 (1.2-3.4); LYMPH% 32.9 % (20.5-51.1); MCH 26.8 PG (27-31); MCV 83.9 FL (81-99); MONO# 1.07 X1000 (0.11-0.59); MONO% 13.2 % (1.7-9.3); MPV 10.8 FL (7.4-10.4); NEUT# 4.12 X1000 (1.4-6.5); NEUT% 50.7 % (42.2-75.2); PLT 242 X1000 (130-400); RBC 3.54 XMIL (4.2-5.4); RDW 15.6 % (11.5-14.5); WBC 8.12 X1000 (4.8-10.8)
[2018-08-16 06:41] LABS: HEMOGLOBIN A1C 6.2 % (4.8-6.0)
[2018-08-16 06:48] LABS: AGAP 17; BUN 6 mg/dL (8-22); CHLORIDE 100 mmol/L (98-107); COSMO 276; CREATININE 0.8 mg/dL (0.5-0.9); ESTIMATED GFR > 60; GLUCOSE 117 mg/dL (70-104); POTASSIUM 4.2 mmol/L (3.5-5.1); SODIUM 139 mmol/L (136-145); TCO2 22 mmol/L (25-35)
[2018-08-16 07:41] LABS: EOS 5 % (1-10); LYMPHS 30 % (21-51); MONO 10 % (1-9); SEGS 55 % (42-75)
[2018-08-16 08:18] LABS: INR 1.02; PROTIME 13.9 Seconds (11.0-16.0)
[2018-08-16] MEDS ORDERED: ROCEPHIN 2 GM in NS 50 ML IV SCH (10:00)
[2018-08-16] MEDS: ZANTAC PO SCH ×2 (10:00→21:30)
[2018-08-16] MEDS: ZYRTEC PO SCH (10:00)
[2018-08-16] MEDS ORDERED: LOVENOX SUBQ SCH (10:30)
[2018-08-16] MEDS ORDERED: VANCOMYCIN IV PER PHARMACY MISC SCH (10:45)
[2018-08-16] MEDS: HUMALOG DOSE (PARKWAY) SUBQ SCH ×4 (11:39→21:30)
[2018-08-16] MEDS ORDERED: VANCOMYCIN 1,750 MG in NS 250 ML IV SCH (12:00)
--- NOTE | 2018-08-16 13:59 | Extremity Venous Study ---
EXAM: Venous U/S Right Leg HISTORY: swelling, erythema TECHNIQUE: Right lower extremity venous Doppler ultrasound COMPARISON: None. FINDINGS: There is good flow and compressibility of the veins of the right lower extremity. No thrombus. Normal augmentation. IMPRESSION: No evidence of deep venous thrombosis in the right lower extremity. Electronically signed by Micky Ordonez 08/16/2018 1:57 PM
--- NOTE | 2018-08-16 19:43 | PROGRESS NOTE ---
DATE: 08/16/2018 SUBJECTIVE: She is still complaining of pain and swelling in her right knee. OBJECTIVE: Vital Signs: Blood pressure 123/82, heart rate of 84, respiratory rate 20, temperature 98.8, 96% on room air. Cardiovascular: Regular rate and rhythm. Pulmonary: Bilateral breath sounds. Clear to auscultation. Gastrointestinal: Soft, nontender, nondistended. Bowel sounds are positive. LABORATORY DATA: White count 8, hemoglobin and hematocrit 9 and 29, platelets 242,000. Basic was normal. A1c is only 6.2. She is a bit anemic. PROBLEM LIST: 1. Right lower extremity possible septic arthritis. Her fluid, though aspirated per Dr. Vogt, really is not consistent with septic arthritis. The white count is certainly not high enough and the culture is negative. However, at least externally she has a degree of cellulitis or possible bursitis with redness, pain and swelling, and that has not improved despite antibiotics now for several days. The only culture positivity is from blood cultures on admission which were positive for strep pneumonia. I discussed the case with Dr. Vogt and he is willing to do a washout of her knee and we are planning to transfer her to [facility] when a bed is available for that process. 2. Streptococcus pneumonia bacteremia. The case was discussed briefly with Dr. Murcia, who recommended Rocephin. My only concern is just that the knee is not improving despite penicillin-type antibiotics because I think she was on Zosyn prior to that. I am going to add, initially I did vancomycin, but she had been on vancomycin and we stopped that based on her cultures. I am going to add daptomycin and we will follow. She had been on cefepime per Dr. Reaves, vancomycin and cefepime. I am going to switch her to daptomycin until Dr. Murcia can evaluate the patient face to face. I am not sure if this is a secondary problem. Apparently, her knee was not that uncomfortable when she was first admitted. There is also no evidence of pneumonia despite her strep pneumoniae bacteremia. There was question of a UTI, but unfortunately she did not get a urine culture collected on admission. Her urine to me, though, had 10 to 20 white blood cells with greater than 10 squames. It was not a very clean sample and there was no other evidence of infection. So, I do not really know if that is an accurate thing, but in any case, our plan is to transfer her to [facility] when bed is available for further management. 3. Diabetes. Reportedly she is on metformin typically, but seems well controlled. We have held the metformin, but her blood sugars have been stable so I am not maintaining her on that right now as she has not been eating very well, but that will need to be adjusted I think. cc: Javi Patricia MD MTDD
[2018-08-16] MEDS ORDERED: CUBICIN 600 MG in NS 100 ML IV SCH (20:00)
[2018-08-16 20:42] LABS: RETIC% 0.32 % (0.8-2.1); RETIC-HE 27.9 PG (28.2-36.6)
[2018-08-16] MEDS: PROTONIX PO SCH (21:30)
[2018-08-17] MEDS: NORCO-10 PO SCH ×4 (01:15→21:24)
[2018-08-17] MEDS ORDERED: LEXISCAN ONE (08:20)
[2018-08-17] MEDS: ZANTAC PO SCH ×2 (08:38→21:24)
[2018-08-17] MEDS: ZYRTEC PO SCH (08:38)
[2018-08-17 08:58] LABS: BASO# 0.11 X1000 (0.0-0.2); BASO% 1.2 % (0.0-0.8); EOS# 0.19 X1000 (0.0-0.7); HEMATOCRIT 30.3 % (37.0-47.0); HEMOGLOBIN 9.7 g/dL (12.0-16.0); IMM GRAN# 0.06 X1000 (0.0-0.04); IMM GRAN% 0.6 % (0.0-0.5); LYMPH# 2.84 X1000 (1.2-3.4); LYMPH% 30.6 % (20.5-51.1); MCH 27.1 PG (27-31); MCV 84.6 FL (81-99); MONO# 1.03 X1000 (0.11-0.59); MONO% 11.1 % (1.7-9.3); MPV 10.4 FL (7.4-10.4); NEUT# 5.04 X1000 (1.4-6.5); NEUT% 54.5 % (42.2-75.2); PLT 302 X1000 (130-400); RBC 3.58 XMIL (4.2-5.4); RDW 15.3 % (11.5-14.5); WBC 9.27 X1000 (4.8-10.8)
[2018-08-17 09:29] LABS: LYMPHS 34 % (21-51); MONO 18 % (1-9); SEGS 48 % (42-75)
[2018-08-17 09:30] LABS: ANISOCYTOSIS 1+; HYPOCHROM 1+
[2018-08-17 09:39] LABS: AGAP 13; BUN 5 mg/dL (8-22); CALCIUM 9.6 mg/dL (8.8-10.2); CHLORIDE 102 mmol/L (98-107); COSMO 280; CREATININE 0.7 mg/dL (0.5-0.9); ESTIMATED GFR > 60; GLUCOSE 99 mg/dL (70-104); IRON SATURATION 8 %; POTASSIUM 3.6 mmol/L (3.5-5.1); SODIUM 142 mmol/L (136-145); TCO2 27 mmol/L (25-35); TIBC 178 ug/dL; TOTAL IRON 15 ug/dL (49-151); UNBOUND IRON 163 ug/dL (112-346)
[2018-08-17 09:41] LABS: FERRITIN 298 ng/mL (13-150)
--- NOTE | 2018-08-17 10:50 | PROGRESS NOTE ---
DATE: 08/17/2018 SUBJECTIVE: Luz Barksdale is a 53-year-old female, who has cellulitis of her right leg. She initially had blood cultures that showed Streptococcus pneumoniae of uncertain the etiology. She developed a UTI as well, but never grew out anything from her urine. Her leg developed a redness, and she had swelling about her right knee that was painful. I aspirated it on Wednesday. Her white count of her aspirate was only 2800 and there were no bacteria seen. However, she has continued to not improve and with increased swelling and redness of her right leg, even on antibiotics. I was asked by Dr. Patricia to consider irrigation and debridement of her knee. OBJECTIVE: She is a well-developed, well-nourished female. She is alert cooperative exam. Her white count is normal at 9.03. She had ultrasound done yesterday that was normal as well. She does have 1 to 2+ effusion of right knee, but no tenderness over the superior part of her knee. There is no significant warmth of her knee. Most her redness is really about her leg than her knee. She does have significant swelling and pitting edema of her leg. ASSESSMENT: Right leg cellulitis and swelling with right total knee with effusion. PLAN: Dr. Patricia was concerned that there may be seeding of the joint. I have discussed this with the patient. She agrees to proceed with arthroscopic lavage of the right knee. I discussed with her the risks, benefits, and alternatives of this including, but not limited to bleeding, nerve damage, infection, risk from anesthesia, continued pain of the knee and infection of the knee, possibly even requiring removal of the knee joint, up to and including loss of limb and life and other imponderables. She voices her understanding, and all questions were answered. No guarantees were given. We will plan on doing the surgery tomorrow either at noon or at 5, depending upon surgical availability, as long as Dr. Patricia and Dr. Murcia still agree that this is a necessary procedure. cc: Sai Vogt MD
--- NOTE | 2018-08-17 11:51 | INFECTIOUS DISEASE CONSULT REP ---
DATE: INCOMPLETE REPORT -- DICTATION ENDS HERE. cc: Slade Murcia MD MTDD
--- NOTE | 2018-08-17 12:08 | INFECTIOUS DISEASE CONSULT REP ---
DATE: 08/17/2018 CONCLUSION: The patient has a pneumococcal bacteremia. It may have originated from a right leg cellulitis. The cellulitis may have developed because the patient has bilateral tinea pedis, which could serve as a portal for organisms to get into the leg and cause cellulitis. The patient's arteriogram shows a pulmonary nodule, but nothing to suggest pneumonia. The patient right knee, which is in the leg which has the cellulitis, feels like there is fluid in there and in fact, the knee has been aspirated. There were only 2005 white cells in the synovial fluid, but I still think it is possible the knee could be infected because it was relatively early in the infection, and if no treatment were given, then the white blood cell count might increase substantially. Also, the patient may have an immunoglobulin deficiency in view of the fact that she had a pneumococcal bacteremia. The patient's pneumococcal blood isolate is susceptible to all antibiotics tested. RECOMMENDATION: I agree with treating the patient with Rocephin 2 g IV daily. I think daptomycin can be discontinued now that we know the identity and susceptibility of the organism in the patient's bloodstream, namely Streptococcus pneumoniae. II think it is also reasonable to take the patient to surgery and wash out her knee. DISCUSSION: The patient tells me that in the past few days, her right leg became swollen and painful. She has had aspiration of her knee, and synovial fluid was obtained. The white blood cell count of the fluid was 2005. No crystals were seen. Of the white blood cells, 76% were polymorphonuclear. The patient has had repeat blood cultures and they are sterile now. PAST MEDICAL HISTORY/REVIEW OF SYSTEMS: Eyes and ears: Patient wears glasses. Her hearing is okay. Neck: No stiffness. Pulmonary: No cough or shortness of breath. Cardiac: No chest pain or palpitations. GI: No nausea, vomiting, or diarrhea. Genitourinary: No dysuria or flank pain. Bones, joints, muscles: See present illness. Endocrine: Patient is diabetic. She does not have thyroid disease. Neurologic: The patient does not have seizures. She has had meningitis in the past. She has not had any recent loss of motor or sensory function. COMMUNITY RECREATION COORDINATOR HISTORY: She is a 4, para 1, AB 3. PREVIOUS HOSPITALIZATIONS AND OPERATIONS: She has had labor and delivery, 3 miscarriages, admission for meningitis and admission for ankle fracture which required surgery. She has also had a right index finger infection which also necessitated surgery. The patient was admitted because her diabetes was under control at another time and she also has been in the hospital because she had pneumonia. MEDICAL DISEASES: Positive for diabetes mellitus and hypertension, hyperlipidemia, gastroesophageal reflux disease, and paresthesias. INFECTIOUS DISEASE HISTORY: Positive for urinary tract infection, pneumonia, a right index finger infection and meningitis. FAMILY HISTORY: Positive for diabetes mellitus, hypertension, myocardial infarction, stroke, and cancer. The patient is disabled. SOCIAL HISTORY[place] . She lives with family members. She does not smoke cigarettes, drink alcoholic beverages or abuse drugs. ALLERGIES: She does not have any drug allergies. HOME MEDICATIONS: Neurontin, hydrocodone, meloxicam, Glucophage, metoprolol omeprazole, simvastatin, Januvia, and tizanidine. PHYSICAL EXAMINATION: Vital Signs: Temperature is 98.9 degrees, pulse 80, respirations 20, blood pressure 117/74. Height/weight: Patient is 5 feet 5 inches tall, weighs 216 pounds. General: This is an obese middle-aged female. She is in no acute distress. Head/eyes/ears/nose/throat: She is wearing glasses. She can see near objects. She can hear my spoken words, no drainage noted from the nose or the ears, patient does not have any white patches on her tongue. Neck: No meningismus. Lungs: Clear to auscultation. Cardiovascular: Regular heart rate. Abdomen: Soft and nontender. Extremities: The patient's right leg is swollen and tender. The right leg appeared to be erythematous also. There is fluid in the joint space. Integument: No rash noted. Thank you for the consultation. cc: Slade Murcia MD
--- NOTE | 2018-08-17 14:05 | PROGRESS NOTE ---
DATE: 08/17/2018 SUBJECTIVE: Ms. Barksdale reports that she is feeling better. She has not gotten out of bed and walked much so we do need to make sure she is ambulating. OBJECTIVE: Vital Signs: Temperature 98.9 degrees, pulse 80, respirations 20, blood pressure 117/74. HEENT: Pupils are equal and round. Lungs: Clear in all lung hair. Cardiovascular Examination: Regular rhythm and rate without murmur or S3. Labs: Blood sugar 125, 178, 150. ASSESSMENT AND PLAN: 1. Pneumococcal bacteremia originating from the right leg cellulitis. Cellulitis has developed because of the patient's bilateral tinea pedis which can serve as a portal for entrance organism. The patient's arteriogram shows pulmonary nodule but nothing to suggest pneumonia. The patient's right knee and the cellulitis of the leg feel like fluid in there. In fact, the knee has been aspirated. There were 2005 white blood cells in the synovial fluid but possibly, the knee could be infected because it is relatively early in the affection. If no treatment was given, the white blood cell count might increase substantially. The patient may have immunoglobulin deficiency so that will be checked. He is getting Rocephin 2 g intravenous daily. Daptomycin was discontinued. We know the identity of the organism in the bloodstream was streptococcal pneumoniae and it was felt that it was reasonable to take the patient to surgery and wash out her knee. 2. Streptococcal pneumoniae bacteremia. 3. Diabetes mellitus. We will follow blood sugars. 4. Review of her orders. I do not see any change at this point. cc: Abrahan Maxwell MD
[2018-08-17] MEDS: ROCEPHIN 2 GM in NS 50 ML IV SCH (15:18)
[2018-08-17] MEDS: HUMALOG DOSE (PARKWAY) SUBQ SCH ×3 (15:19→22:25)
[2018-08-17] MEDS: LOTRIMIN 1% CREAM TOP SCH ×2 (15:21→17:42)
[2018-08-17] MEDS: PROTONIX PO SCH (21:25)
[2018-08-18] MEDS: NORCO-10 PO SCH ×4 (02:59→21:25)
[2018-08-18] MEDS: HUMALOG DOSE (PARKWAY) SUBQ SCH ×4 (06:08→22:20)
[2018-08-18] MEDS: LOTRIMIN 1% CREAM TOP SCH ×2 (06:18→18:11)
[2018-08-18] MEDS ORDERED: SENSORCAINE 0.5%-EPI 1:200,000 ONE (10:19)
[2018-08-18] MEDS ORDERED: NEOSPORIN G.U. IRRIGANT ONE (10:19)
[2018-08-18] MEDS ORDERED: XYLOCAINE-MPF 2% ONE (10:39)
[2018-08-18] MEDS ORDERED: FENTANYL ONE (10:40)
[2018-08-18] MEDS ORDERED: VERSED ONE (10:40)
[2018-08-18] MEDS ORDERED: DIPRIVAN 1% ONE (10:40)
[2018-08-18] MEDS: MARCAINE 0.5% ONE ×2 (12:41→12:42)
[2018-08-18] MEDS: DILAUDID ONE ×3 (13:18→14:13)
[2018-08-18] MEDS: ZANTAC PO SCH ×2 (14:01→21:25)
[2018-08-18] MEDS: ZYRTEC PO SCH (14:01)
[2018-08-18] MEDS: NS 1,000 ML IV SCH (14:13)
[2018-08-18] MEDS: ROCEPHIN 2 GM in NS 50 ML IV SCH (14:13)
--- NOTE | 2018-08-18 14:43 | PROGRESS NOTE ---
DATE: 08/18/2018 SUBJECTIVE: Ms. Barksdale is feeling better. Still pretty weak and needs to be able to ambulate a little better. OBJECTIVE: Vital signs: Temperature 99.4 degrees, pulse 80, respirations 23, blood pressure 151/90. HEENT: Pupils are equal and round. Lungs: Clear in all lung hair anterior, lateral, and posterior. Cardiovascular: Regular rhythm and rate without murmur or S3. Abdomen: Soft. Skin: Warm and dry. Urine output was 800 mL. ASSESSMENT AND PLAN: 1. Pneumococcal bacteremia originating for right leg cellulitis. I believe the cellulitis was related to her tinea pedis. The patient's arteriogram showed pulmonary nodule but nothing suggesting pneumonia. She seems to be improving. She had right knee cellulitis and the knee had been aspirated. There were 2,005 white blood cells in the synovial fluid so it could have represented an early infection. The patient is on daptomycin. Was getting Rocephin and daptomycin was discontinued. The organism in the blood stream was streptococcal pneumonia and so it was felt reasonable to take the patient to surgery and wash out the knee. 2. Streptococcal pneumonia bacteremia. 3. Diabetes mellitus. Continue physical therapy. She is going to need to be able to bear weight and ambulate. I think she would like to go home. We will see how we progress. cc: Abrahan Maxwell MD
--- NOTE | 2018-08-18 15:59 | OPERATIVE NOTE ---
PROCEDURE DATE: 08/18/2018 PREOPERATIVE DIAGNOSES: 1. Right lower extremity cellulitis and effusion. 2. Right total knee arthroplasty with possible septic total joint of her knee. POSTOP DIAGNOSES: 1. Right lower extremity cellulitis and effusion. 2. Right total knee arthroplasty with possible septic total joint of her knee. PROCEDURE: Arthroscopic lavage and debridement of right knee. ANESTHESIA: General. SURGEON: Sai Vogt MD. PULMONOLOGIST: Nelly Villarreal PA-C. COMPLICATIONS: None. BLOOD LOSS: Minimal. CULTURES: To pathology. DESCRIPTION OF PROCEDURE: Patient was brought to the operative suite and placed in the supine position. After successful administration of general anesthesia, a well-padded tourniquet was placed on the right proximal thigh. Right lower extremity was prepped and draped in usual the sterile fashion. Leg was exsanguinated. Tourniquet insufflated to 350 torr. Using a lateral arthroscopy portal, cultures were obtained from the portal. Then through a medial portal I used a shaver to debride any scar tissue were loose fibrinous material. Then the knee was copiously irrigated with 6 L normal saline containing irrigant and 1 L of Vashe irrigation. The incisions were closed with interrupted nylon suture. The wounds were injected with Marcaine and a sterile dressing was applied. The patient tolerated the procedure well without complication. At the end the procedure, all counts were correct x2. The patient was transferred to the recovery room in stable condition. cc: Sai Vogt MD
--- NOTE | 2018-08-18 20:46 | INFECTIOUS DISEASE PROGRESS NO ---
DATE: 08/18/2018 PRESENT ILLNESS: Ms. Barksdale has a pneumococcal bacteremia which may have originated from cellulitis of her right leg. There is also a tinea pedis. This afternoon, she is status post arthroscopic lavage and debridement of her right knee. MEDICATIONS: Today is day 1 of ceftriaxone 2 g IV every 24 hours. She is also on clotrimazole cream to toes every 12 hours. PHYSICAL EXAMINATION: Vital Signs: Temperature of 98.3 degrees, pulse rate 65 , respiratory rate 23, blood pressure 131/48, O2 saturations 98% on room air. General: This is a chronically ill- appearing, middle-aged, obese female. She is lying in the bed, recently back from surgery, in no acute distress. HEENT: Atraumatic, normocephalic. Poor dentition is noted. Oral mucous membranes are pink and moist. Neck: Supple. Trachea is midline. Cardiovascular: Heart rate is regular. Pedal and radial pulses are palpable bilaterally. Respiratory: Lung sounds are clear to auscultation. Diminished in the bases. Abdomen: Soft, obese, and nontender. Bowel sounds are active. Integumentary: Skin is warm and dry. There is an Harinder wrap dressing in place to the right lower extremity with an ice pack in place to the knee. Neurologic: The patient is awake, alert, and oriented. LABORATORY AND X-RAY: No blood work today. Her right knee Gram stain from this afternoon showed 2+ white blood cells. Anaerobic and routine cultures are pending. Her original blood culture grew Streptococcus pneumoniae. She has had subsequent negative blood cultures since then. No imaging reports today. ASSESSMENT AND PLAN: Ms. Barksdale is postoperative from arthroscopic lavage and debridement of the right knee. She has also been treated for a pneumococcal bacteremia. She is receiving Rocephin which we will continue at this time. We will also continue clotrimazole cream to her feet bilaterally. These plans have been discussed with and recommended by Dr. Murcia. COMORBIDITIES: for Ms. Barksdale include diabetes mellitus and gastroesophageal reflux disease. Dictated by SAVITA Solorzano for Slade Murcia MD This chart was documented by, SAVITA Solorzano and accurately reflects the services performed, treatment plan and medical decisions as attested by the providers signature Slade Murcia MD. cc: Slade Murcia MD [facility]
[2018-08-18] MEDS: PROTONIX PO SCH (21:25)
[2018-08-19] MEDS: TYLENOL PO PRN (01:43)
[2018-08-19] MEDS: NS 1,000 ML IV SCH ×2 (03:22→17:12)
[2018-08-19] MEDS: NORCO-10 PO SCH ×4 (03:23→20:26)
[2018-08-19] MEDS: LOTRIMIN 1% CREAM TOP SCH ×2 (06:41→17:22)
[2018-08-19] MEDS: HUMALOG DOSE (PARKWAY) SUBQ SCH ×4 (06:42→20:28)
[2018-08-19 07:53] LABS: BASO# 0.04 X1000 (0.0-0.2); BASO% 0.5 % (0.0-0.8); EOS# 0.17 X1000 (0.0-0.7); EOS% 2.1 % (0.0-10.0); HEMATOCRIT 32.5 % (37.0-47.0); HEMOGLOBIN 10.1 g/dL (12.0-16.0); IMM GRAN# 0.04 X1000 (0.0-0.04); IMM GRAN% 0.5 % (0.0-0.5); LYMPH# 2.99 X1000 (1.2-3.4); LYMPH% 36.6 % (20.5-51.1); MCH 26.9 PG (27-31); MCHC 31.1 g/dL (33-37); MCV 86.7 FL (81-99); MONO# 0.99 X1000 (0.11-0.59); MONO% 12.1 % (1.7-9.3); MPV 10.2 FL (7.4-10.4); NEUT# 3.93 X1000 (1.4-6.5); NEUT% 48.2 % (42.2-75.2); PLT 425 X1000 (130-400); RBC 3.75 XMIL (4.2-5.4); RDW 15.4 % (11.5-14.5); WBC 8.16 X1000 (4.8-10.8)
[2018-08-19 08:17] LABS: EOS 2 % (1-10); LYMPHS 36 % (21-51); MONO 10 % (1-9); SEGS 50 % (42-75)
[2018-08-19 08:33] LABS: AGAP 14; BUN 5 mg/dL (8-22); CALCIUM 8.8 mg/dL (8.8-10.2); CHLORIDE 100 mmol/L (98-107); COSMO 279; CREATININE 0.6 mg/dL (0.5-0.9); ESTIMATED GFR > 60; GLUCOSE 111 mg/dL (70-104); POTASSIUM 4.1 mmol/L (3.5-5.1); SODIUM 141 mmol/L (136-145); TCO2 27 mmol/L (25-35)
[2018-08-19] MEDS: ZYRTEC PO SCH (08:46)
[2018-08-19] MEDS: ZANTAC PO SCH ×2 (08:46→20:26)
--- NOTE | 2018-08-19 13:30 | PROGRESS NOTE ---
DATE: 08/19/2018 SUBJECTIVE: Luz Barksdale is a 53-year-old female who is postoperative day 1 from a right knee arthroscopic lavage. She has no new complaints, other than she wishes to not have to have her knee elevated. She states her knee feels better since yesterday. OBJECTIVE: She is a well-developed, well-nourished female. She is alert, oriented, and cooperative to exam. Her cultures are negative. So far, her Gram stain was negative. Her white count is normal today. ASSESSMENT: Stable right knee from arthroscopic lavage. PLAN: We will continue her current care. We will change her dressing tomorrow. She can be discharged to home, whenever she is cleared medically. She should return to see me in 10 days for a suture removal. cc: Sai Vogt MD
--- NOTE | 2018-08-19 15:03 | PROGRESS NOTE ---
DATE: 08/19/2018 SUBJECTIVE: Ms. Barksdale had surgery on her right knee for infection. She has it wrapped. She is feeling pretty good this morning. OBJECTIVE: Temperature is 97.9, pulse 85, respirations 16, blood pressure 123/79. Pupils are equal and round. Lungs are clear in all lung hair. Cardiovascular: Regular rate and rhythm without murmur or S3. Abdomen is soft. Skin is warm and dry. Urine output was about 300 mL from yesterday. Today she has had 1700 mL. ASSESSMENT AND PLAN: 1. Stable right knee arthroscopic lavage. She has pneumococcal bacteremia which I fell originated from cellulitis of the right leg and maybe a tinea pedis. She had arthroscopic lavage and debridement of the right knee after it was tapped and saw some white blood cells. Continue ceftriaxone 2 g IV q.24 hours and clotrimazole cream q.12 hours. Blood culture grew out streptococcal and pneumococcal pneumoniae which was from 08/11/2018, I think 2 of 2 blood cultures. Continue present regimen. 2. Diabetes mellitus type 2. Sugars appear under good control. 3. Nutrition is good. 4. Review of her orders. I do not see any change at this point. Note that hematocrit is 32, hemoglobin is 10. Kidney function looks good with creatinine of 0.6, sodium 141, potassium 4.1, chloride 100, BUN is 5, creatinine 0.6. cc: Abrahan Maxwell MD
[2018-08-19] MEDS: ROCEPHIN 2 GM in NS 50 ML IV SCH (17:20)
[2018-08-19] MEDS: PROTONIX PO SCH (20:26)
--- NOTE | 2018-08-20 01:52 | INFECTIOUS DISEASE PROGRESS NO ---
DATE: 08/19/2018 PRESENT ILLNESS: The patient has pneumococcal bacteremia which may have originated from a pneumococcal cellulitis of her leg. The patient also has tinea pedis. Yesterday she underwent lavage and debridement of her right knee performed by Dr. Vogt, and he said that she could possibly have an infected total knee arthroplasty. The patient also has tinea pedis and may have an infection of her right total knee arthroplasty. MEDICATIONS: The patient was on Rocephin 2 g IV every 24 hours, I increased that to 2 g IV every 12 hours. As regarding her tinea pedis, I have the patient on clotrimazole cream to between all of her toes every 12 hours. PHYSICAL EXAMINATION: Vital Signs: Temperature is 98 degrees, pulse 85, respirations 16, blood pressure 123/79. General: This is a somewhat ill-appearing middle-aged female. She is obese. Head/eyes/ears/nose/throat: She can hear my spoken words and see near objects. She has poor oral hygiene. There are no white patches on her tongue. Neck: No meningismus. Lungs: Clear to auscultation. Cardiovascular: Regular heart rate. Abdomen: Soft and nontender. Extremities: The patient has an Harinder wrap around her right leg. She has a large dressing around the leg, the dressing is intact. Neurologic: The patient is alert. She can move her extremities. Integument: No rash that I noted. LAB AND X-RAY: The patient's CBC today shows a white count of 8160, hemoglobin 10.1, and platelet count is 425,000. The patient's creatinine is 0.6. GFR is greater than 60. Cultures taken from the patient's right knee are sterile. The patient initially had blood cultures positive for Streptococcus pneumoniae, the repeat blood cultures drawn on 08/15/2018 are sterile. ASSESSMENT AND PLAN: The patient has a pneumococcal bacteremia, with an associated right leg cellulitis and possible infection of the right total knee arthroplasty. The patient also has tinea pedis. I plan to treat the patient for 6 weeks with the intravenous Rocephin because the total knee arthroplasty is possibly infected even if the cultures are negative, the patient was on antibiotics when those cultures were taken. COMORBIDITIES: The patient's comorbidities include diabetes mellitus and obesity. cc: Slade Murcia MD
[2018-08-20] MEDS: NORCO-10 PO SCH ×4 (02:48→20:19)
[2018-08-20] MEDS: HUMALOG DOSE (PARKWAY) SUBQ SCH ×4 (06:18→20:18)
[2018-08-20] MEDS: ROCEPHIN 2 GM in NS 50 ML IV SCH ×2 (06:19→17:40)
[2018-08-20] MEDS: LOTRIMIN 1% CREAM TOP SCH ×2 (06:20→17:41)
[2018-08-20] MEDS: ZANTAC PO SCH ×2 (09:24→20:19)
[2018-08-20] MEDS: ZYRTEC PO SCH (09:24)
[2018-08-20] MEDS: NS 1,000 ML IV SCH ×3 (09:37→20:19)
--- NOTE | 2018-08-20 10:17 | PROGRESS NOTE ---
DATE: 08/20/2018 SUBJECTIVE: The patient is a pleasant 53-year-old female, who is 2 days status post arthroscopic lavage right lower extremity. She is currently resting comfortably. OBJECTIVE: On physical examination, the patient's dressing is intact. Calf is soft. Active dorsiflexion and plantar flexion appeared. Cultures from the right knee are negative. IMPRESSION: Postoperative day #2, status post arthroscopic lavage right knee. PLAN: Change her dressing. The patient is stable from an orthopedic standpoint. May be discharged when she is cleared, medically. Patient will follow up with Dr. Vogt on 08/30/2018. cc: Levy Porter MD
--- NOTE | 2018-08-20 14:03 | PROGRESS NOTE ---
DATE: 08/20/2018 SUBJECTIVE: Ms. Barksdale is feeling better. Her leg is feeling better. By report, less swelling. She did ask about some of her home medications, and so we will look over those. OBJECTIVE: Vital Signs: Temperature 98.3 degrees, pulse 72, respirations 18, blood pressure 120/79. Eyes: Pupils are equal and round. Lungs: Clear in all lung hair. Cardiovascular exam: Regular rhythm and rate without murmur or S3. Abdomen: Soft. Skin: Warm and dry. Extremities: Right leg wrapped and swelling going down. Blood sugars 148, 232 and 110. ASSESSMENT AND PLAN: 1. Postoperative day #2 status post arthroscopic lavage of the right knee. Doing well. Swelling has gone down. Continue present antibiotics. 2. Pneumococcal bacteremia. There may have been draining from her pneumococcal cellulitis of the leg. She also had tinea pedis, so underwent lavage and debridement of her knee per Dr. Vogt. Seems to be doing well. 3. Diabetes mellitus type 2. Blood sugar is doing well. Continue to follow. 4. Nutrition is good. I have reviewed her orders; I do not see any change. Continue ceftriaxone 2 grams intravenous every 12 hours, getting normal saline at 75 mL an hour. Looking at her home medications, I think we can start her back on her clonazepam 1 mg at bedtime and see if we can go ahead and do the Neurontin. We will put her back on her metformin, simvastatin, her Januvia. cc: Abrahan Maxwell MD
[2018-08-20] MEDS: TYLENOL PO PRN (16:34)
[2018-08-20] MEDS: GLUCOPHAGE PO SCH (20:18)
[2018-08-20] MEDS: NEURONTIN PO SCH (20:18)
[2018-08-20] MEDS: ZOCOR PO SCH (20:18)
[2018-08-20] MEDS: PROTONIX PO SCH (20:19)
[2018-08-20] MEDS: KLONOPIN PO SCH (20:19)
[2018-08-21] MEDS: NORCO-10 PO SCH ×4 (03:31→20:17)
[2018-08-21] MEDS: ROCEPHIN 2 GM in NS 50 ML IV SCH ×2 (05:55→17:27)
[2018-08-21] MEDS: LOTRIMIN 1% CREAM TOP SCH ×2 (05:55→18:20)
[2018-08-21] MEDS: HUMALOG DOSE (PARKWAY) SUBQ SCH ×4 (06:03→20:19)
[2018-08-21] MEDS: TYLENOL PO PRN ×2 (07:00→18:33)
[2018-08-21] MEDS: ZANTAC PO SCH ×2 (08:25→20:16)
[2018-08-21] MEDS: GLUCOPHAGE PO SCH ×2 (08:26→20:17)
[2018-08-21] MEDS: ZYRTEC PO SCH (08:26)
[2018-08-21] MEDS: JANUVIA PO SCH (08:26)
[2018-08-21] MEDS: NEURONTIN PO SCH ×2 (08:26→20:16)
--- NOTE | 2018-08-21 13:31 | PROGRESS NOTE ---
DATE: 08/21/2018 SUBJECTIVE: Ms. Barksdale is feeling better. The swelling and pain has gone down in her right knee. OBJECTIVE: Vital signs: Temp 98 degrees, pulse 85, respirations 18, blood pressure 103/72. HEENT: Pupils are equal. Neck: No distended neck veins. Lungs: Clear in all lung hair. Cardiovascular: Regular rhythm and rate without murmur or S3. Abdomen: Soft. Skin: Warm and dry. Urine output is close to 3 L. ASSESSMENT AND PLAN: 1. Postoperative day 3 from arthroscopic lavage of the right knee. She is doing much better. 2. Pneumococcal bacteremia. Continue present antibiotics. 3. Diabetes mellitus type 2. Blood sugar is well controlled. 4. Nutrition. She just does not have much appetite. 5. Review of her orders. I do not see any change. Normal saline going at 75 mL an hour. Note that her blood sugars seem to be well controlled. 6. Diabetes mellitus type 2. Sugar is under good control. cc: Abrahan Maxwell MD
[2018-08-21] MEDS: NS 1,000 ML IV SCH (15:18)
[2018-08-21] MEDS: PROTONIX PO SCH (20:16)
[2018-08-21] MEDS: KLONOPIN PO SCH (20:17)
[2018-08-21] MEDS: ZOCOR PO SCH (20:17)
[2018-08-22] MEDS: NORCO-10 PO SCH ×4 (02:20→20:38)
[2018-08-22] MEDS: NS 1,000 ML IV SCH ×2 (05:21→18:45)
[2018-08-22] MEDS: LOTRIMIN 1% CREAM TOP SCH ×2 (05:26→18:50)
[2018-08-22] MEDS: ROCEPHIN 2 GM in NS 50 ML IV SCH ×2 (05:36→18:46)
[2018-08-22] MEDS: HUMALOG DOSE (PARKWAY) SUBQ SCH ×2 (06:11→18:46)
[2018-08-22] MEDS: ZYRTEC PO SCH (08:31)
[2018-08-22] MEDS: JANUVIA PO SCH (08:31)
[2018-08-22] MEDS: NEURONTIN PO SCH ×2 (08:31→20:38)
[2018-08-22] MEDS: GLUCOPHAGE PO SCH ×2 (08:31→20:38)
[2018-08-22] MEDS: ZANTAC PO SCH ×2 (08:31→20:38)
--- NOTE | 2018-08-22 17:11 | PROGRESS NOTE ---
DATE: 08/22/2018 Ms Barksdale is doing well. She is itching around where her tape is in the right knee but the swelling is going down. Still not have much appetite just picking at her food a little bit. Temperature 97.8 degrees, pulse 80, respirations 22, blood pressure 167/65. Pupils are equal and round.Lungs: Clear in all lung hair. Cardiovascular: Regular rhythm, rate without murmur or S3. Abdomen: Soft. Skin: Warm and dry. Urine output is 2600. Blood sugars well maintained. ASSESSMENT AND PLAN: 1. Postoperative day 4 arthroscopic lavage right knee doing very well. 2. Pneumococcal bacteremia. Continue antibiotics. I think we will need PICC line and she will need more prolonged antibiotics. Her IV access is poor. 3. Diabetes mellitus type 2. Sugars well controlled. 4. Nutrition, not much appetite, encourage p.o. intake. 5. Continue Protonix 40 mg daily for GI prophylaxis. She is also on Zantac 150 mg b.i.d. I think the plan is to try and get her ready to go to rehab. cc: Abrahan Maxwell MD
[2018-08-22 17:40] LABS: PROTIME 11.7 Seconds (11.0-16.0)
[2018-08-22] MEDS ORDERED: LEVAQUIN PO ONE (17:47)
[2018-08-22 18:02] LABS: INR 0.79
[2018-08-22] MEDS: PROTONIX PO SCH (20:38)
[2018-08-22] MEDS: KLONOPIN PO SCH (20:38)
[2018-08-22] MEDS: ZOCOR PO SCH (20:40)
--- NOTE | 2018-08-23 00:05 | INFECTIOUS DISEASE PROGRESS NO ---
DATE: 08/22/2018 PRESENT ILLNESS: Ms. Barksdale has pneumococcal bacteremia which may have originated from the cellulitis of her right knee. She is status post arthroscopic lavage and debridement of her right knee. She is also being treated for tinea pedis bilaterally. MEDICATIONS: Based on her sterile blood cultures today is day 7 of treatment for her bacteremia. She is receiving Rocephin 2 g IV every 12 hours. She is also on clotrimazole cream to her toes every 12 hours. PHYSICAL EXAMINATION: Vital Signs: Temperature is 97.8 degrees, pulse rate 81 , respiratory rate 22, blood pressure 161/65, O2 is 97% on room air. General: This is a obese somewhat ill- appearing middle-aged female. She is sitting up on the side of the bed in no acute distress. HEENT: Atraumatic, normocephalic. Oral mucous membranes are pink and moist. She has poor dentition. Conjunctivae are pale. Neck: Supple. Trachea is midline. Cardiovascular: Heart rate is regular. Radial and pedal pulses are +2 bilaterally. There is a 1 to 2 + pretibial edema on the right with an Harinder wrap in place to her right knee. Respiratory: Lung sounds are clear to auscultation bilaterally. Abdomen: Soft, obese and nontender. Bowel sounds are active. Neurologic: She is awake, alert, oriented and able to move her extremities independently with some limitations to the right lower extremity. LABORATORY/X-RAY: None available. ASSESSMENT AND PLAN: Ms Barksdale has a streptococcal bacteremia for which she has been receiving Rocephin. At this time the nurses are having trouble getting an intravenous in her so orders have been put in for a PICC line to be done tomorrow so she can continue the Rocephin. For now we will order a 1-time dose of Levaquin 500 mg by mouth to cover her for the missing Rocephin doses. For the tinea pedis we will continue the clotrimazole to her toes every 12 hours. These plans have been discussed with and recommended by Dr. Murcia. COMORBIDITIES: Include she is obese with diabetes mellitus and gastroesophageal reflux disease. Dictated by SAVITA Solorzano for Slade Murcia MD This chart was documented by, SAVITA Solorzano and accurately reflects the services performed, treatment plan and medical decisions as attested by the providers signature Slade Murcia MD. cc: Slade Murcia MD [facility]
[2018-08-23] MEDS: HUMALOG DOSE (PARKWAY) SUBQ SCH ×5 (02:40→21:27)
[2018-08-23] MEDS: NORCO-10 PO SCH ×4 (02:45→20:58)
[2018-08-23] MEDS: LOTRIMIN 1% CREAM TOP SCH ×2 (07:40→20:59)
[2018-08-23] MEDS: ROCEPHIN 2 GM in NS 50 ML IV SCH ×2 (07:40→20:57)
[2018-08-23] MEDS: NS 1,000 ML IV SCH (07:49)
[2018-08-23] MEDS ORDERED: NS 250 ML ONE (08:02)
[2018-08-23] MEDS: GLUCOPHAGE PO SCH ×2 (10:36→20:58)
[2018-08-23] MEDS: NEURONTIN PO SCH ×2 (10:37→20:57)
[2018-08-23] MEDS: JANUVIA PO SCH (10:37)
[2018-08-23] MEDS: ZYRTEC PO SCH (10:37)
[2018-08-23] MEDS: ZANTAC PO SCH ×2 (10:37→20:57)
--- NOTE | 2018-08-23 13:54 | PROGRESS NOTE ---
DATE: 08/23/2018 SUBJECTIVE: This morning, Ms. Barksdale refers to be doing fairly okay. Still has some pains in the right knee. OBJECTIVE: Vital signs: Blood pressure 102/73, pulse 89, respirations 19, temperature 98.8 degrees. General: Ms. Barksdale is a 53-year-old female. She was in bed, in no distress. HEENT: Mucosa is pink and moist. Anicteric. Acyanotic. Neck: Supple. Chest: Clear to auscultation. No crepitations. No rhonchi. Cardiovascular: Regular rate and rhythm. Abdomen: Soft, nontender. Extremities: No pedal edema. Central nervous system: The patient is awake, alert, and oriented. Musculoskeletal: Right knee still minimally swollen and erythematous. There are sutures in place at the site of the arthroscopy. LABORATORY DATA: None for today. MICROBIOLOGY: Blood cultures have come back negative after the initial Streptococcus pneumoniae- positive blood test. CURRENT MEDICATIONS: The patient's current medications include ceftriaxone. ASSESSMENT: 1. Streptococcus pneumoniae bacteremia. 2. Right septic knee arthroplasty, status post arthroscopic lavage and debridement of the right knee done by Dr. Vogt on 08/18/2018. 3. Diabetes mellitus, controlled. 4. Dyslipidemia. Will continue controlling. PLAN: In general, Ms. Barksdale is fairly stable. We are still pending social service liaison arrangement for rehab placement. cc: Ebenezer Quigley MD [facility]
--- NOTE | 2018-08-23 19:14 | INFECTIOUS DISEASE PROGRESS NO ---
DATE: 08/23/2018 PRESENT ILLNESS: Ms. Barksdale is being treated for pneumococcal bacteremia which may have originated from the right knee cellulitis. She is status post arthroscopic lavage and debridement of that right knee. She is also being treated for tinea pedis bilaterally. MEDICATIONS: Based on her sterile blood cultures today is day 8 of treatment with ceftriaxone 2 g IV every 12 hours. She is also receiving clotrimazole cream to her toes every 12 hours. PHYSICAL EXAMINATION: Vital Signs: Temperature is 98.8 degrees, pulse rate 83 , respiratory rate 22, blood pressure 132/89, O2 saturation 98% on room air. General: This is an obese somewhat ill appearing middle-aged female. She is sitting up in bed eating dinner in no acute distress. HEENT: Atraumatic, normocephalic. Oral mucous membranes are pink and moist. There is poor dentition noted. Conjunctivae are pale. Neck: Supple. Trachea is midline. Cardiovascular: Heart rate is regular. There is a 1+ pretibial edema noted to the right lower extremity with dressing in place to the right knee. Respiratory: Lung sounds are clear to auscultation. Abdomen: Soft, obese and nontender. Bowel sounds are active. Neurologic: She is awake, alert, and oriented. She is able to move all extremities well and very slow movement to the right lower extremity. LABORATORY AND X-RAY: None available today. ASSESSMENT AND PLAN: Ms Barksdale is being treated for pneumococcal bacteremia and has also had debridement for cellulitis of her right knee. We will continue Rocephin, which she will need for a total of 6 weeks due to her right knee replacement. Based on her sterile blood cultures today is day 8. She has had a PICC put in and is awaiting transfer to rehab at this point. These plans have been discussed with and recommended by Dr. Murcia. COMORBIDITIES: Include that she is obese with diabetes mellitus and gastroesophageal reflux disease. Dictated by SAVITA Solorzano for Slade Murcia MD This chart was documented by, SAVITA Solorzano and accurately reflects the services performed, treatment plan and medical decisions as attested by the providers signature Slade Murcia MD. cc: Slade Murcia MD [facility]
[2018-08-23] MEDS: PROTONIX PO SCH (20:57)
[2018-08-23] MEDS: ZOCOR PO SCH (20:58)
[2018-08-23] MEDS: KLONOPIN PO SCH (20:58)
[2018-08-24] MEDS: NS 1,000 ML IV SCH (02:00)
[2018-08-24] MEDS: NORCO-10 PO SCH ×4 (05:55→20:32)
[2018-08-24] MEDS: HUMALOG DOSE (PARKWAY) SUBQ SCH ×4 (07:49→20:42)
[2018-08-24] MEDS: GLUCOPHAGE PO SCH ×2 (08:12→20:32)
[2018-08-24] MEDS: JANUVIA PO SCH (08:13)
[2018-08-24] MEDS: ZANTAC PO SCH (08:13)
[2018-08-24] MEDS: NEURONTIN PO SCH ×2 (08:13→20:32)
[2018-08-24] MEDS: LOTRIMIN 1% CREAM TOP SCH ×2 (08:14→20:33)
[2018-08-24] MEDS: ZYRTEC PO SCH (08:14)
[2018-08-24] MEDS: ROCEPHIN 2 GM in NS 50 ML IV SCH ×2 (08:14→20:33)
--- NOTE | 2018-08-24 11:41 | PROGRESS NOTE ---
DATE: 08/24/2018 SUBJECTIVE: This morning, Ms. Barksdale refers to be doing fairly okay and still complaining about some pain in the right calf and to the back of the knee. OBJECTIVE: Vital Signs: Blood pressure is 143/90, pulse is 93, respirations 17 , temperature 98.8. General: Ms. Barksdale is a 53-year-old -[place] female. She is in bed. She is not in any cardiopulmonary distress. Mucosa is pink and moist. Anicteric. Acyanotic. Neck is supple. Chest: Good air entry bilateral. There are no crepitations and no rhonchi. Cardiovascular: Regular rate and rhythm. No murmurs, no rubs, no gallops. Abdomen was soft, nontender. Bowel sounds present. Extremities: No pedal edema. Distal pulses present. Musculoskeletal: The right knee is minimally swollen. There are stitches in place at the site of the arthroscopic surgery. The right knee feels slightly tender. There is also tenderness all the way to the calf and to the distal leg. BIOPHYSICS PROFESSOR: Patient is awake, alert, and oriented. There is no focal neurological deficit. LABORATORY DATA: None for today. ASSESSMENT: 1. Streptococcal pneumoniae bacteremia. Source was apparently from the cellulitis of the right knee. 2. Right knee septic total arthroplasty. This has been intervened on. There has been incision and drainage of the knee by Dr. Vogt. 3. Iron deficiency anemia. We have started the patient on supplements. 4. Persistent right calf pain. Unsure if this is any indication of deep venous thromboses. I know the patient had an early ultrasound done on 08/16/2018; it was negative. I do not see where she was on any prophylaxis either, so we will repeat the ultrasound to rule out any deep venous thrombosis, and we started her on deep venous thrombosis prophylaxis for now. 5. Disposition still pending rehab placement. In general, Ms. Barksdale is currently on Rocephin 2 g b.i.d. for bacteremia associated with total knee arthroplasty infection. Per ID recommendation, she is going to be needing this for 6 weeks. She already has a PICC line and will be waiting on the rehab placement to get her discharged. cc: Ebenezer Quigley MD [facility]
[2018-08-24] MEDS ORDERED: PNEUMOVAX 23 IM ONE (17:51)
[2018-08-24] MEDS: ZOCOR PO SCH (20:32)
[2018-08-24] MEDS: PERICOLACE PO SCH (20:32)
[2018-08-24] MEDS: KLONOPIN PO SCH (20:33)
[2018-08-24] MEDS: FERROUS SULFATE PO SCH (20:33)
[2018-08-24] MEDS: PROTONIX PO SCH (20:33)
--- NOTE | 2018-08-25 01:09 | INFECTIOUS DISEASE PROGRESS NO ---
DATE: 08/24/2018 PRESENT ILLNESS: The patient has pneumococcal bacteremia which I think originated from her right knee cellulitis, or possibly it originated from somewhere else and secondarily involved the knee. The patient also has tinea pedis bilaterally. MEDICATIONS: This is the 9th day of treatment with Rocephin with the 1st day being when the patient had negative blood cultures. The patient also receives clotrimazole cream for tinea pedis. I have also ordered the pneumococcal vaccine for the patient. PHYSICAL EXAMINATION: Vital Signs: Temperature is 97.6 degrees, pulse 87, respirations 21, blood pressure 127/94. General: This is an obese, middle-aged female. She is in no acute distress. Head, eyes, ears, nose, and throat: She can hear my spoken words and see near objects. She does not have any white patches on her tongue. Neck: No meningismus. Lungs: Clear to auscultation. Cardiovascular: Heart rate is regular. Abdomen: Soft and nontender. Extremities: The right leg is less swollen, and it is not erythematous. The incisions are intact. Neurologic: The patient is alert. She is able to ambulate in the velasquez. LABORATORY AND X-RAY: None were done for today. ASSESSMENT AND PLAN: The patient is being treated for pneumococcal bacteremia with cellulitis of the leg and probable septic arthritis. I plan to continue the Rocephin at its current dose for a total of 6 weeks. The patient also is getting clotrimazole cream for her tinea pedis, and I have ordered her the pneumococcal vaccine tonight. It is the 23-Valent vaccine. COMORBIDITIES: The patient is obese. She has diabetes mellitus and gastroesophageal reflux disease. cc: Slade Murcia MD
[2018-08-25] MEDS: NORCO-10 PO SCH ×3 (03:05→15:14)
[2018-08-25 08:17] LABS: BASO# 0.02 X1000 (0.0-0.2); BASO% 0.3 % (0.0-0.8); EOS# 0.15 X1000 (0.0-0.7); EOS% 1.9 % (0.0-10.0); HEMATOCRIT 30.5 % (37.0-47.0); HEMOGLOBIN 9.4 g/dL (12.0-16.0); LYMPH# 3.36 X1000 (1.2-3.4); LYMPH% 43.1 % (20.5-51.1); MCH 26.5 PG (27-31); MCHC 30.8 g/dL (33-37); MCV 85.9 FL (81-99); MONO# 0.76 X1000 (0.11-0.59); MONO% 9.7 % (1.7-9.3); MPV 9.9 FL (7.4-10.4); NEUT# 3.51 X1000 (1.4-6.5); PLT 493 X1000 (130-400); RBC 3.55 XMIL (4.2-5.4); RDW 15.2 % (11.5-14.5)
[2018-08-25 08:47] LABS: AGAP 12; BUN 7 mg/dL (8-22); CALCIUM 9.6 mg/dL (8.8-10.2); CHLORIDE 100 mmol/L (98-107); COSMO 274; CREATININE 0.6 mg/dL (0.5-0.9); ESTIMATED GFR > 60; GLUCOSE 104 mg/dL (70-104); POTASSIUM 4.3 mmol/L (3.5-5.1); SODIUM 138 mmol/L (136-145); TCO2 26 mmol/L (25-35)
[2018-08-25] MEDS ORDERED: LOVENOX SUBQ SCH (09:00)
[2018-08-25] MEDS: NEURONTIN PO SCH (11:07)
[2018-08-25] MEDS: ZYRTEC PO SCH (11:07)
[2018-08-25] MEDS: JANUVIA PO SCH (11:07)
[2018-08-25] MEDS: FERROUS SULFATE PO SCH (11:08)
[2018-08-25] MEDS: GLUCOPHAGE PO SCH (11:08)
[2018-08-25] MEDS: ROCEPHIN 2 GM in NS 50 ML IV SCH (11:08)
[2018-08-25] MEDS: PERICOLACE PO SCH (11:08)
[2018-08-25] MEDS: LOTRIMIN 1% CREAM TOP SCH (11:09)
[2018-08-25] MEDS: HUMALOG DOSE (PARKWAY) SUBQ SCH (11:14)
[2018-08-25 13:53] VITALS: BP 113/92
--- NOTE | 2018-08-25 15:41 | DISCHARGE SUMMARY ---
ADMISSION DATE: 08/11/2018 DISCHARGE DATE: 08/25/2018 INDICATIONS: The patient's length of stay was 14 days. [facility] FOLLOW-UP: 1. Dr. Murcia. 2. Dr. Vogt. CONSULTATION DURING THIS ADMISSION: 1. Orthopedics was consulted; patient was seen by Dr. Vogt. 2. Infectious Disease was consulted; patient was seen by Dr. Murcia. IMAGING STUDIES OF SIGNIFICANCE: A chest x-ray was done initially which was stable. A CT of the lungs showed no evidence of pulmonary emboli. There was cardiomegaly. A Doppler ultrasound of the lower extremity shows no evidence of DVT. DISCHARGE MEDICATIONS: 1. Metformin 1000 mg b.i.d. 2. Simvastatin 40 mg at bedtime. 3. Clonazepam 1 mg p.o. at bedtime. 4. [place] 10 mg 4 times daily. 5. Meloxicam 75 mg at bedtime. 6. Januvia 50 mg p.o. daily. 7. Gabapentin 800 b.i.d. 8. Metoprolol 25 mg b.i.d. 9. Iron sulfate 325 b.i.d. 10. Pantoprazole 40 mg daily. 11. Analisa-Colace 1 tablet b.i.d. 12. Stockings. ADMISSION DIAGNOSES: 1. Leukocytosis. 2. Urinary tract infection. 3. Elevated D-dimer. DIAGNOSES AT THE TIME OF DISCHARGE: 1. Streptococcal pneumoniae bacteremia. 2. Right knee septic total arthroplasty with surrounding cellulitis. 3. Iron deficiency anemia. 4. Venous insufficiency on the right. 5. Diabetes mellitus with presenting A1c of 6.2. We will continue with patient's oral hypoglycemic agents. PRESENTING COMPLAINT: Weakness, nausea, vomiting. HISTORY OF PRESENTING COMPLAINT: Ms. Barksdale is a 53-year-old female, who is known to have longstanding history of diabetes mellitus on oral hypoglycemic agent, dyslipidemia, hypertension. The patient had a previous right knee surgery done a couple months ago. She came in this time because she was having fever, cough, congestion for 3 days. Upon presentation, the patient was evaluated, was found to be tachycardic. Was initially admitted to [facility] for further medical care. HOSPITAL COURSE: The patient was transferred from [facility] to [facility] for higher level of care. The patient was initially seen by Orthopedics, Dr. Vogt, and a decision was made to open up the knee. Surgery was done on 08/18/2018 where an arthroscopic lavage and debridement of the right knee was done. Postoperative diagnosis was right lower extremity cellulitis and effusion, and a right total knee arthroplasty with possible septic total joint of her knee. During the hospital course, the patient's initial blood culture was also found to be positive with Streptococcus pneumoniae. She was on broad-spectrum antibiotics and this was subsequently changed to ceftriaxone. ID was consulted and blood cultures were repeated which came back negative. ID recommended to treat with IV antibiotics for a total of 6 weeks. Ms. Barksdale continued to be fairly stable during the hospital course. She was seen multiple times by physical therapy as well. Today, she is clinically stable for discharge. She has been awaiting discharge to rehab for some time now until today that we are being told that a bed has been available for her at [facility]. Ms Barksdale is subsequently being transferred to [facility] to continue with her physical baptism. During the hospital course, she was also noted to have swelling in the right calf. The repeat Doppler did not show any DVT, however it did show that Ms. Barksdale has venous insufficiency with incompetent valve. She has been prescribed graduated stockings to help with the venous flow. All the discharge instructions have been discussed with Ms. Barksdale and she voices understanding. TIME SPENT FOR DISCHARGE: 37 minutes. cc: MD Slade Flowers MD Richard S. Sharp, MD
--- NOTE | 2018-08-25 18:38 | INFECTIOUS DISEASE PROGRESS NO ---
DATE: 08/25/2018 PRESENT ILLNESS: The patient has a pneumococcal bacteremia with an associated cellulitis of the right leg and probable involvement of the patient's right total knee arthroplasty. The patient also has tinea pedis. MEDICATIONS: This is the 10th day of treatment with Rocephin, with day #1 being the first day that the patient had negative blood cultures. The patient also is receiving clotrimazole cream for tinea pedis. The patient also received the pneumococcal vaccine for the patient. This was the 23 Valent vaccine. PHYSICAL EXAMINATION: Vital Signs: Temperature is 97.9, pulse 98, respirations 16, blood pressure 113/92. General: This is an obese, middle-aged female. She is in no acute distress. Head, Eyes, Ears, Nose and Throat: She can hear my spoken words and see near objects. She does not have any white patches on her tongue. Neck: No stiffness. Lungs: Clear to auscultation. Cardiovascular: Heart rate is regular. Abdomen: Soft and nontender. Extremities: Patient's PICC in her arm is not swollen or draining. The patient's right knee is less swollen. The incisions are intact. There is no drainage. Neurologic: Patient is alert. She is able to ambulate. There is no tremor. LAB AND X-RAY: There is no new radiographic study. The creatinine is 0.6. GFR is greater than 60. CBC shows a white count of 7800, hemoglobin 9.4 and platelet count 493,000. ASSESSMENT AND PLAN: The patient has pneumococcal bacteremia with cellulitis of the right leg and possible septic arthritis with infection of her total knee arthroplasty. The patient has had 10 days of treatment with Rocephin. I plan to treat her for 32 more days to complete her total treatment. The patient is going to rehab. I have ordered that the patient have a CBC with diff and a creatinine every Wednesday while she is receiving Rocephin and that the PICC should be removed after the last dose of Rocephin. The patient will be seen in my office in 35 days and at that time most likely I will put the patient on a low dose of an oral antibiotic in case the prosthesis got infected. Most likely it will be just plain penicillin VK 500 mg p.o. every 12 hours. Also, the patient will be checked the see if she has tinea pedis and if she does have it, then she will have to use clotrimazole cream and possibly this might be on a chronic basis. The patient at her age probably will not require the 13 Valent pneumococcal vaccine. COMORBIDITIES: Obesity, diabetes mellitus, gastroesophageal reflux disease. cc: Slade Murcia MD
--- NOTE | 2018-08-26 08:54 | Extremity Venous Study ---
PROCEDURE NAME: Venous U/S Right Leg - 08/24/2018 DIRECTOR ORANGE: Mirtha Garcia RVT. REQUESTING PHYSICIAN: Ebenezer Quigley MD. INDICATIONS: Right leg edema and knee surgery 6 days ago. FINDINGS: Deep and superficial veins of right lower extremity were visualized along their course. All vessels appear compressible with forward flow and no evidence intraluminal thrombus. There was reflux noted in the common femoral, popliteal, and left common femoral veins. There was some nonspecific fluid behind the right knee. SUMMARY: No deep or superficial venous thrombosis seen in the right lower extremity. cc: MD Ebenezer Akbar MD
== END 2018-08-25 18:41 | DRG 485 ==
LOC: P.ED 11:38 → P.MEDSURG 16:29 → SUATTDRO 16:29 → 3N 08-17 01:05
PROVIDERS: ATTEND Internal Medicine
CPT/HCPCS: 36415; 36569; 71010; 71020; 71045; 71046; 71275; 73560; 80048; 80053; 80202; 81001; 82607; 82728; 82746; 82784; 82948; 83036; 83540; 83550; 83605; 83735; 83880; 84466; 84484; 85025; 85045; 85379; 85610; 87040; 87070; 87075; 87077; 87186; 87205; 87275; 87276; 87804; 89051; 93005; 93010; 93971; 94640; 96361; 96365; 97110; 97116; 97162; 97530; 99285; A9270; C9113; J0696; J0878; J1170; J1200; J1650; J1815; J2250; J2270; J2785; J3010; J3370; J7030; J7050; Q9967; S0020; S0164; XXXXX